=== PATIENT | female | born 1960 | race African-American/Black ===

== ENCOUNTER → 2016-07-08 | Outpatient (CLI) | payer MEDICARE, OTHER ==
[2015-06-28 10:58] VITALS: BP 123/83
[~2016-07-08] MED LIST: ALBU2.5V14 NEB; AMLO10TA2 PO; AMLO5TAB2 PO; ASPI81TA50 PO; AZIT250T6 PO; BUDE10.2 IH; BUDE10.22 IH; CLON0.5T PO; CYCL10TA2 PO; DOXY100T PO; ESCI10TA PO; ESCI20TA10 PO; GADOBUTROL 7.5 MMOL/7.5 ML VIAL INT ART ONE; GUAI120L35 PO; HYDR-2762 PO; HYDR10TA2 PO; HYDR200T5 PO; HYDR50TA PO; LEVO5TAB2 PO; LIDOCAINE 1% Multi-Dose 20 ML VIAL. ID ONE; LISI-334 PO; NYST1000 PO; OLOP2.5D OP; OXYC-323 PO; PRED-220 PO; PROM118S2 PO; PROP60CA8 PO; TIOT18CA IH; TOPI25TA32 PO; TRAZ50TA15 PO; XOPENEX HFA15 GM IH; ZOLP10TA4 PO
--- NOTE | 2016-07-08 15:23 | KCIC ---
PROCEDURE MR arthrogram of the left shoulder HISTORY Left rotator cuff tear. Surgery December 2015. Pain for 1 or 2 months. TECHNIQUE Intra-articular contrast injected prior to the scan, and reported separately. Patient was unable to tolerate ABER positioning. COMPARISON November 28, 2015 FINDINGS Moderate motion degradation. There is a deep well-defined undersurface defect of the supraspinatus tendon, measures 18 minutes mm wide by 10 mm AP. At the lateral aspect of the defect this is about 90 percent deep. On coronal images there does appear to be a very thin layer of intact overlying bursal tissue, but on the sagittal images there is suggestion of some through and through violation. Contrast does spill into the subdeltoid bursa. Subscapularis tendon is intact. Moderate muscle volume loss with mild fatty infiltration, of the rotator cuff, may be slightly worse than on the prior study Degenerative type changes at the superior labrum are again identified without new clear-cut tear. There is some irregularity of the inferior labrum seen on the coronal slices compatible with degeneration and possible tear. There is biceps tendinosis. Mild glenohumeral joint chondromalacia. Suture anchors at the greater tuberosity. No significant bone destruction or acute fracture. No acute soft tissue injury IMPRESSION 1. There is a deep undersurface defect or tear of the supraspinatus tendon, at least 90 percent across. A couple of sagittal images suggests that there is some through and through involvement, but this is not confirmed on the other sequences. 2. Mild rotator cuff muscle atrophy, may be slightly progressive since the prior study. 3. Mild irregularity at the inferior labrum compatible with degeneration or tearing. Mild superior labral degeneration again identified. Electronically signed by: Javier Aguillon MD (Jul 08, 2016 15:21:45)
--- NOTE | 2016-07-08 15:25 | KCIC ---
PROCEDURE Therapeutic left shoulder injection using fluoroscopic guidance. HISTORY Pain. TECHNIQUE The procedure was explained to the patient as were potential risks, including among others infection, bleeding or allergic reaction. All questions were answered. Informed written consent was obtained. The anterior shoulder was prepped and draped in the usual sterile manner. The patient reports a history of iodine contrast allergy, therefore iodine contrast was not used. Following administration of local anesthetic, a 22-gauge needle was advanced into the shoulder joint without difficulty. Following negative aspiration, a mixture of 2 cc (80 mg) Depo-Medrol, 4 cc 0.5% Marcaine and 4 cc 1% lidocaine were injected without difficulty. The needle was removed. There was good hemostasis at the injection site. The patient left in stable condition without immediate complication. The patient was given postprocedural instructions, instructed to contact us or the emergency room if there are any complications. A single spot image is obtained. FLUOROSCOPY TIME: 22 seconds Electronically signed by: Javier Aguillon MD (Jul 08, 2016 15:23:29)
== END | disposition home or self-care (01) ==
LOC: KCIC 12:51
PROVIDERS: ATTEND Orthopaedic Surgery Sports Medicine
DX: M75.102 Unspecified rotator cuff tear or rupture of left shoulder, not specified as traumatic (principal)
CPT/HCPCS: 73040; 73222; A9585

== ENCOUNTER → 2016-10-29 | Outpatient (CLI) | payer MEDICARE, OTHER ==
[2015-06-28 10:58] VITALS: BP 123/83
[~2016-10-29] MED LIST changes: -ESCI10TA PO; -ESCI20TA10 PO; +ESCITALOPRAM OX10 MG PO; -GADOBUTROL 7.5 MMOL/7.5 ML VIAL INT ART ONE; +LEXAPRO20 MG PO; -LIDOCAINE 1% Multi-Dose 20 ML VIAL. ID ONE; -NYST1000 PO; +NYST100054 PO; -TOPI25TA32 PO; +TOPI25TA52 PO
--- NOTE | 2016-11-07 13:15 | PDOC4 ---
PROCEDURE Procedure POLYSOMNOGRAPHY REPORT Kaylee is 56 years old who weighs 220 pounds with a BMI of 35. Patient's [place] score was 6. Patient underwent sleep study at [facility]. This was a split night study. During the night's study patient spent 449 minutes in bed and slept for 373 minutes with a sleep efficiency of 83%. Sleep latency was 34 minutes. REM latency was 167 minutes. Overall sleep architecture showed normal stage I sleep , increased stage II sleep, normal slow-wave sleep and normal REM sleep. During the initial diagnostic portion of the study patient slept for 192 minutes. During this time patient had 21 obstructive apneas and 2 mixed apneas and no central apneas. Patient had 39 hypopneas. Patient's AHI during the diagnostic portion was 19 per hour. Supine AHI was 19 per hour and REM AHI of 80 per hour. EKG monitoring revealed average heart rate of 85 bpm. Normal sinus rhythm. No sustained arrhythmias were observed. Review of nocturnal oximetry study revealed a mean oxygen saturation of 99% with the lowest of 76%. 16% of the time oxygen saturation remained less than 90% . There were PLM seen Patient met the criteria for CPAP initiation. He was started at 5 cm water and titrated up to 15 cm of water. At the final pressure patient slept for 43 minutes. Supine sleep was seen but no REM sleep was observed. Patient's AHI was 0 per hour. Patient used a small size fullface mask. IMPRESSION 1. Moderate sleep apnea hypoxia syndrome with worsening during REM sleep. Total AHI 19 per hour with REM AHI of 80 per hour. 2. Mild nocturnal hypoxia secondary to obstructive sleep apnea, but resolved with CPAP. 3. No clinically significant PLM RECOMMENDATIONS 1. CPAP at 15 cm water completely eliminated patient's sleep apnea and should be used on a nightly basis. 2. Follow-up in 4-6 weeks to assess compliance with CPAP and to document clinical improvement. 3. Weight loss is strongly advised. 4. Avoid central nervous system depressants 5. Cautioned regarding driving until symptoms of sleep apnea have resolved with the use of CPAP. ADDIE ENCARNACION MD Nov 07, 2016 13:15
== END | disposition home or self-care (01) ==
LOC: RT 18:13
PROVIDERS: ATTEND Internal Medicine Critical Care Medicine
DX: G47.33 Obstructive sleep apnea (adult) (pediatric) (principal); R09.02 Hypoxemia
CPT/HCPCS: 95810

== ENCOUNTER → 2017-03-27 | Outpatient (CLI) | payer MEDICARE, OTHER ==
[2015-06-28 10:58] VITALS: BP 123/83
[~2017-03-27] MED LIST changes: +BARIUM SULFATE 2.1% 450 ML SUSP PO ONE
--- NOTE | 2017-03-27 14:45 | KCIC ---
PQRS Compliance Statement: One or more of the following individualized dose reduction techniques were utilized for this examination: 1. Automated exposure control 2. Adjustment of the mA and/or kV according to patient size 3. Use of iterative reconstruction technique CT ABDOMEN WO CONTRAST Clinical Indication: Right-sided pain and epigastric pain, diarrhea. Comparison: None. TECHNIQUE: Helical CT imaging of the abdomen is performed without IV contrast. Findings: Lung bases are clear. Coronary artery disease. Cardiac size normal. Liver, gallbladder, spleen, pancreas, adrenal glands, kidneys, and abdominal aorta caliber are normal. Atherosclerotic distal abdominal aorta and common iliac arteries. There is hyperdense material in the stomach that is admixing with fluid. Correlate to recent ingestions. Visualized small bowel is not dilated. There is right of midline ventral and periumbilical hernia mesh. Visualized colon does not demonstrate wall thickening. No abdominal adenopathy or free fluid. No acute bone abnormality. Mild grade 1 anterolisthesis of L4 on L5. IMPRESSION: No acute abdominal abnormality. Electronically signed by: Black Malik MD (03/27/2017 2:42 PM) [id number]
== END | disposition home or self-care (01) ==
LOC: KCIC CT 13:51
DX: R10.13 Epigastric pain (principal); R19.7 Diarrhea, unspecified; I25.10 Atherosclerotic heart disease of native coronary artery without angina pectoris
CPT/HCPCS: 74150

== ENCOUNTER 2017-06-30 19:23 | Inpatient (IN) | payer MEDICARE, OTHER ==
[2017-06-30 19:39] LABS: ADD MAN DIFF? NO
[2017-06-30 19:44] LABS: BASO # 0.1 x10^3/uL (0.0-0.2); BASO % 1 % (0-3); EOS # 0.1 x10^3/uL (0.0-0.7); EOS % 2 % (0-3); HEMATOCRIT 46.2 % (36.0-47.0); HEMOGLOBIN 15.1 g/dL (12.0-15.5); LYMPH # 3.1 x10^3/uL (1.0-4.8); LYMPH % 40 % (24-48); MEAN CORPUSCULAR HEMOGLOBIN 28 pg (25-35); MEAN CORPUSCULAR HGB CONC 33 g/dL (31-37); MEAN CORPUSCULAR VOLUME 86 fL (79-100); MONO # 0.3 x10^3/uL (0.0-1.1); MONO % 5 % (0-9); NEUT # 4.1 x10^3uL (1.8-7.7); NEUT % 53 % (31-73); PLATELET COUNT 200 x10^3/uL (140-400); RED CELL DISTRIBUTION WIDTH 14.7 % (11.5-14.5); WHITE BLOOD COUNT 7.6 x10^3/uL (4.0-11.0)
[2017-06-30 19:51] LABS: ANION GAP 10 (6-14); BLOOD UREA NITROGEN 9 mg/dL (7-20); BUN/CREATININE RATIO 10 (6-20); CALCIUM 9.1 mg/dL (8.5-10.1); CARBON DIOXIDE 27 mmol/L (21-32); CHLORIDE 107 mmol/L (98-107); CREATININE 0.9 mg/dL (0.6-1.0); GFR 77.8; GLUCOSE 132 mg/dL (70-99); POTASSIUM 3.9 mmol/L (3.5-5.1); SODIUM 144 mmol/L (136-145)
[2017-06-30 19:57] LABS: ALBUMIN 3.5 g/dL (3.4-5.0); ALBUMIN/GLOBULIN RATIO 0.8 (1.0-1.7); ALK PHOS 142 U/L (46-116); ALT (SGPT) 51 U/L (14-59); AST (SGOT) 59 U/L (15-37); TOTAL BILIRUBIN 0.4 mg/dL (0.2-1.0)
[2017-06-30 20:02] LABS: TROPONINI < 0.017 ng/mL (0.000-0.055)
[2017-06-30] MEDS ORDERED: NITROGLYCERIN SUBLINGUAL 0.4 MG BOTTLE OF 25. SL ×2 (20:19→22:45)
[2017-06-30] MEDS: NITROGLYCERIN SUBLINGUAL 0.4 MG BOTTLE OF 25. SL ×2 (20:22→20:30)
[2017-06-30 20:59] LABS: D-DIMER 0.52 ug/mlFEU (0.00-0.50)
[2017-06-30] MEDS: ACETAMINOPHEN 500 MG TABLET PO (21:03)
[2017-06-30] MEDS ORDERED: IOHEXOL 300 MG/ML 100ML VIAL. (21:32)
[2017-06-30] MEDS ORDERED: CONTRAST GIVEN MC (21:45)
[2017-06-30] MEDS: diphenhydrAMINE 50 MG/ML VIAL IVP (21:56)
[2017-06-30] MEDS: methylPREDNISolone SOD SUCC PF 125 MG/2 ML VIAL. IV (21:56)
[2017-06-30] MEDS: IOHEXOL 300 MG/ML 100ML VIAL. IV (22:00)
[2017-06-30] MEDS: ASPIRIN CHEWABLE 81 MG TABLET. PO (23:05)
[2017-06-30] MEDS: NITROGLYCERIN OINT 1 GM PACKET. TP (23:05)
[2017-06-30] MEDS ORDERED: ONDANSETRON PF 4 MG/2 ML VIAL. IV (23:15)
[2017-06-30] MEDS ORDERED: ACETAMINOPHEN 325 MG TABLET. PO (23:15)
[2017-07-01] MEDS: fentaNYL PF VIAL 100 MCG/2 ML VIAL IV ×3 (00:53→08:41)
[2017-07-01 02:59] LABS: TROPONINI < 0.017 ng/mL (0.000-0.055)
[2017-07-01 05:49] LABS: TROPONINI < 0.017 ng/mL (0.000-0.055)
[2017-07-01] MEDS: IPRATRPIUM/ALBUTEROL 0.5/2.5MG 3 ML NEBU. NEB ×5 (08:36→20:00)
[2017-07-01 09:48] LABS: CHOLESTEROL 179 mg/dL (0-200); CHOLESTEROL/HDL RATIO 3.1; HDLC 57 mg/dL (40-60); LDLC 107 mg/dL (0-100); NON-HDL CHOLESTEROL 122 mg/dL (0-129); TRIGLYCERIDES 75 mg/dL (0-150); VLDLC 15 mg/dL (0-40)
[2017-07-01] MEDS: amLODIPine BESYLATE 10 MG TABLET PO (11:33)
[2017-07-01] MEDS: ASPIRIN ENTERIC COATED 81 MG TABLET.DR. PO (11:33)
[2017-07-01] MEDS: HYDROcodone/APAP 7.5/325MG 1 TAB TABLET PO ×3 (11:38→20:59)
[2017-07-01] MEDS: REGADENOSON 0.4 MG/5 ML DISP.SYRIN. IV (14:41)
[2017-07-01] MEDS: LISINOPRIL 20 MG TABLET PO (20:58)
[2017-07-01] MEDS: ENOXAPARIN 40 MG/0.4 ML SYRINGE. SQ (20:58)
[2017-07-01] MEDS: TOLNAFTATE 1% TOPICAL SPRAY POWDER 133GM CAN. TP (20:59)
[2017-07-01] MEDS: ZOLPIDEM 5 MG TABLET. PO (22:42)
[2017-07-02] MEDS: HYDROcodone/APAP 7.5/325MG 1 TAB TABLET PO ×5 (01:01→23:39)
[2017-07-02] MEDS: IPRATRPIUM/ALBUTEROL 0.5/2.5MG 3 ML NEBU. NEB (08:32)
[2017-07-02] MEDS: TOLNAFTATE 1% TOPICAL SPRAY POWDER 133GM CAN. TP ×2 (09:00→20:40)
[2017-07-02] MEDS: amLODIPine BESYLATE 10 MG TABLET PO (09:11)
[2017-07-02] MEDS: ASPIRIN ENTERIC COATED 81 MG TABLET.DR. PO (09:11)
[2017-07-02] MEDS: LISINOPRIL 20 MG TABLET PO (09:12)
[2017-07-02] MEDS ORDERED: POLYETHYLENE GLYCOL 3350 17 GM PACKET. PO (10:00)
[2017-07-02] MEDS: PANTOPRAZOLE 40 MG TABLET.DR. PO (13:55)
[2017-07-02] MEDS: LIDO:MAALOX:DONNATAL 1:1:1 15 ML SINGLE DOSE SWSW (13:55)
[2017-07-02] MEDS: ENOXAPARIN 40 MG/0.4 ML SYRINGE. SQ (20:22)
[2017-07-02] MEDS: ZOLPIDEM 5 MG TABLET. PO (23:38)
[2017-07-02 23:57] LABS: BILIRUBIN,URINE NEGATIVE (NEG); CLARITY,URINE CLEAR; COLOR,URINE YELLOW; GLUCOSE,URINE NEGATIVE (NEG); NITRITE,URINE NEGATIVE (NEG); PROTEIN,URINE NEGATIVE (NEG-TRACE)
[2017-07-03 00:15] LABS: BACTERIA,URINE MODERATE /HPF (0-FEW); RBC,URINE 0 /HPF (0-2); SQUAMOUS EPITHELIAL CELL,UR FEW /LPF; WBC,URINE OCC /HPF (0-4)
[2017-07-03] MEDS: HYDROcodone/APAP 7.5/325MG 1 TAB TABLET PO ×4 (03:31→23:06)
[2017-07-03] MEDS: PANTOPRAZOLE 40 MG TABLET.DR. PO (06:15)
[2017-07-03] MEDS: amLODIPine BESYLATE 10 MG TABLET PO (08:44)
[2017-07-03] MEDS: ASPIRIN ENTERIC COATED 81 MG TABLET.DR. PO (08:44)
[2017-07-03] MEDS: TOLNAFTATE 1% TOPICAL SPRAY POWDER 133GM CAN. TP ×2 (08:45→21:46)
[2017-07-03] MEDS: LIDO:MAALOX:DONNATAL 1:1:1 15 ML SINGLE DOSE SWSW (12:00)
[2017-07-03] MEDS: oxyCODONE/APAP 5/325 1 TAB TABLET PO ×2 (12:00→19:32)
[2017-07-03] MEDS: IV NORMAL SALINE 1000ML BAG 1,000 ML IV ×2 (12:01→21:46)
[2017-07-03] MEDS: POLYETHYLENE GLYCOL 3350 17 GM PACKET. PO ×2 (12:13→21:45)
[2017-07-03] MEDS: predniSONE 10 MG TABLET PO (17:39)
[2017-07-03] MEDS: ENOXAPARIN 40 MG/0.4 ML SYRINGE. SQ (20:27)
[2017-07-03] MEDS: LISINOPRIL 20 MG TABLET PO (20:28)
[2017-07-03 22:19] LABS: HCV ANTIBODY >11.0 s/co ratio (0.0-0.9); HEP A IGM ABDY Negative (Negative); HEP B SURFACE AG Negative (Negative)
[2017-07-03] MEDS: predniSONE 20 MG TABLET PO (23:05)
[2017-07-03] MEDS: ZOLPIDEM 5 MG TABLET. PO (23:06)
[2017-07-04] MEDS: oxyCODONE/APAP 5/325 1 TAB TABLET PO (03:58)
[2017-07-04] MEDS: predniSONE 20 MG TABLET PO (06:24)
[2017-07-04] MEDS: diphenhydrAMINE HCL 25 MG CAPSULE PO (07:53)
[2017-07-04] MEDS: IOHEXOL 300 MG/ML 100ML VIAL. IV (08:39)
[2017-07-04] MEDS: TOLNAFTATE 1% TOPICAL SPRAY POWDER 133GM CAN. TP (09:00)
[2017-07-04] MEDS: IV NORMAL SALINE 1000ML BAG 1,000 ML IV (09:02)
[2017-07-04] MEDS: PANTOPRAZOLE 40 MG TABLET.DR. PO (09:02)
[2017-07-04] MEDS: BISACODYL 5 MG TABLET.DR. PO (09:02)
[2017-07-04] MEDS: ASPIRIN ENTERIC COATED 81 MG TABLET.DR. PO (09:02)
[2017-07-04] MEDS: HYDROcodone/APAP 7.5/325MG 1 TAB TABLET PO (09:03)
[2017-07-04] MEDS: amLODIPine BESYLATE 10 MG TABLET PO (09:03)
[2017-07-04] MEDS: POLYETHYLENE GLYCOL 3350 17 GM PACKET. PO (09:04)
== END 2017-07-04 16:44 | disposition home or self-care (01) | DRG 392 ==
LOC: ER 19:23 → 2 SOUTH 22:43
DX: K21.9 Gastro-esophageal reflux disease without esophagitis (principal); J43.9 Emphysema, unspecified; K76.0 Fatty (change of) liver, not elsewhere classified; Z99.81 Dependence on supplemental oxygen; R07.89 Other chest pain; E11.9 Type 2 diabetes mellitus without complications; K59.00 Constipation, unspecified; E78.5 Hyperlipidemia, unspecified; F17.210 Nicotine dependence, cigarettes, uncomplicated; F32.9 Major depressive disorder, single episode, unspecified; F41.9 Anxiety disorder, unspecified; G47.00 Insomnia, unspecified; G43.909 Migraine, unspecified, not intractable, without status migrainosus; G47.33 Obstructive sleep apnea (adult) (pediatric); I10 Essential (primary) hypertension; M19.90 Unspecified osteoarthritis, unspecified site; Z96.651 Presence of right artificial knee joint; N28.89 Other specified disorders of kidney and ureter; Z80.0 Family history of malignant neoplasm of digestive organs; Z85.038 Personal history of other malignant neoplasm of large intestine; Z86.010 Personal history of colon polyps; Z90.710 Acquired absence of both cervix and uterus; Z91.81 History of falling; Z98.42 Cataract extraction status, left eye; Z98.41 Cataract extraction status, right eye; Z88.8 Allergy status to other drugs, medicaments and biological substances
CPT/HCPCS: 36415; 71045; 71275; 74178; 76700; 78452; 80053; 80061; 80074; 81001; 84484; 85025; 85379; 87086; 87186; 93005; 93017; 94640; 96374; 96375; 96376; 99285; 99285-25; A9500; J1200; J1650; J2785; J2930; J3010; J7030; J7512; J7620; Q0163; Q9967

== ENCOUNTER → 2017-07-21 | Day surgery (SDC) | payer MEDICARE, OTHER ==
[~2017-07-21] MED LIST changes: -ALBU2.5V14 NEB; -AMLO10TA2 PO; -AMLO5TAB2 PO; -ASPI81TA50 PO; -AZIT250T6 PO; -BARIUM SULFATE 2.1% 450 ML SUSP PO ONE; -BUDE10.2 IH; -BUDE10.22 IH; -CLON0.5T PO; -CYCL10TA2 PO; -DOXY100T PO; -ESCITALOPRAM OX10 MG PO; -GUAI120L35 PO; -HYDR-2762 PO; -HYDR10TA2 PO; -HYDR200T5 PO; -HYDR50TA PO; +IV RINGERS,LACTATED 1000ML 1,000 ML IV; -LEVO5TAB2 PO; -LEXAPRO20 MG PO; -LISI-334 PO; -NYST100054 PO; -OLOP2.5D OP; -OXYC-323 PO; -PRED-220 PO; -PROM118S2 PO; -PROP60CA8 PO; +PROPOFOL 40 ML IV; -TIOT18CA IH; -TOPI25TA52 PO; -TRAZ50TA15 PO; -XOPENEX HFA15 GM IH; -ZOLP10TA4 PO
== END ==
LOC: SURG 11:21
DX: Z09 Encounter for follow-up examination after completed treatment for conditions other than malignant neoplasm (principal); Z86.010 Personal history of colon polyps; Z80.0 Family history of malignant neoplasm of digestive organs; K63.5 Polyp of colon; I10 Essential (primary) hypertension; E11.9 Type 2 diabetes mellitus without complications; E78.5 Hyperlipidemia, unspecified; J44.9 Chronic obstructive pulmonary disease, unspecified; G47.33 Obstructive sleep apnea (adult) (pediatric); F41.9 Anxiety disorder, unspecified; F32.9 Major depressive disorder, single episode, unspecified; M19.90 Unspecified osteoarthritis, unspecified site; Z98.49 Cataract extraction status, unspecified eye; Z96.659 Presence of unspecified artificial knee joint; Z90.710 Acquired absence of both cervix and uterus; Z98.890 Other specified postprocedural states; Z90.49 Acquired absence of other specified parts of digestive tract; K21.9 Gastro-esophageal reflux disease without esophagitis; Z98.42 Cataract extraction status, left eye; Z98.41 Cataract extraction status, right eye; Z80.1 Family history of malignant neoplasm of trachea, bronchus and lung; Z82.49 Family history of ischemic heart disease and other diseases of the circulatory system
CPT/HCPCS: 45380; 88305; J2704

== ENCOUNTER 2018-04-19 18:17 | Emergency (ER) | payer MEDICARE, OTHER ==
[~2018-04-19] VITALS: Ht 165.1 cm; Wt 103.0 kg
[~2018-04-19 18:17] MED LIST changes: +ALBU2.5V14 NEB; +AMLO10TA6 PO; +AMLO5TAB7 PO; +ASPI81TA50 PO; +AZIT250T6 PO; +BUDE10.2 IH; +BUDE10.22 IH; +CLON0.5T PO; +CYCL10TA2 PO; +DOXY100T PO; +ESCITALOPRAM OX10 MG PO; +FLUT1DIS3 IH; +GUAI120L35 PO; +HYDR-2765 PO; +HYDR10TA2 PO; +HYDR200T5 PO; +HYDR50TA PO; -IV RINGERS,LACTATED 1000ML 1,000 ML IV; +LEVO5TAB2 PO; +LEVO750T31 PO; +LEXAPRO20 MG PO; +LISI-334 PO; +METH4TAB2 PO; +NYST100054 PO; +OLOP2.5D OP; +OXYC1TAB15 PO; +PRED-220 PO; +PROM118S5 PO; +PROP60CA8 PO; -PROPOFOL 40 ML IV; +TIOT18CA IH; +TOPI25TA52 PO; +TRAZ-85 PO; +XOPENEX HFA15 GM IH; +ZOLP10TA4 PO
[2018-04-19 19:24] VITALS: BP 144/111
--- NOTE | 2018-04-19 21:00 | PHYS DOC ---
Past Medical History Past Medical History: Arthritis, COPD, Depression, Hypertension, Hepatitis, Migraines Additional Past Medical Histor: hep C, sleep apnea, imsomnia, fatty liver Past Surgical History: , Hysterectomy, Knee Replacement Additional Past Surgical Histo: bilat CATARACTS, right rotator cuff; hernia; "floating" kidney Alcohol Use: None Drug Use: None Adult General Chief Complaint Chief Complaint: KNEE INJURY HPI HPI Patient is a 57 year old female with history of COPD, on oxygen, hypertension, arthritis, who presents today complaining of 10 out of 10 right knee pain that began yesterday when she fell. Patient denies any loss of consciousness. She describes the pain as sharp. She states she feels something is wrong in her knee. I offered patient right knee x-rays, she she states she has an appointment with her doctor tomorrow and would like a knee immobilizer, Kehinde bandage and left foot orthopedic shoe. She states she is not allowed to take any pain medicine from any emergency room or any other provider apart from her pain clinic doctor because she has a contract with him. She states the pain clinic doctor informed her if she is found taking any pain medicine from anyone else she will be fired from the pain clinic. Patient was provided with orthopedic shoe, immobilizer and Kehinde bandage and discharged. Review of Systems Review of Systems Constitutional: Denies fever or chills [] Musculoskeletal: Reports right knee pain Integument: Denies rash or skin lesions [] Neurologic: Denies headache, focal weakness or sensory changes [] All other systems were reviewed and found to be within normal limits, except as documented in this note. Allergies Allergies Allergies Coded Allergies Type Severity Reaction Last Updated Verified No Known Drug Allergies 07/21/17 No Physical Exam Physical Exam Constitutional: Well developed, well nourished, no acute distress, non-toxic appearance. [] Skin: Warm, dry, no erythema, no rash. [] Back: No tenderness, no CVA tenderness. [] Extremities: Right anterior knee with an old healed surgical incision. No obvious deformity. Slight tenderness on palpation of the right anterior knee. Full passive range of motion to the right knee. +2 right pedal pulse. Cap refill less than 2 seconds the right toes. Sensation intact to the right lower extremity. Neurologic: Alert and oriented X 3, normal motor function, normal sensory function, no focal deficits noted. [] Psychologic: Affect normal, judgement normal, mood normal. [] Current Patient Data Vital Signs Vital Signs Date Time Temp Pulse Resp B/P (MAP) Pulse Ox O2 Delivery O2 Flow Rate FiO2 04/19/18 19:24 97.5 94 16 144/111 (122) 99 Room Air 3.0 97.5 EKG EKG [] Radiology/Procedures Radiology/Procedures [] Course & Med Decision Making Course & Med Decision Making Pertinent Labs and Imaging studies reviewed. (See chart for details) See history of present illness Dragon Disclaimer Dragon Disclaimer This electronic medical record was generated, in whole or in part, using a voice recognition dictation system. Departure Departure Impression: Primary Impression: Fall from standing Additional Impression: Knee pain, right Disposition: HOME, SELF-CARE Condition: STABLE Referrals: JEFFERSON LOCK Jr, MD (PCP) follow up with your doctor tomorrow Patient Instructions: Fall Prevention and Home Safety, Knee Pain, [id number] Additional Instructions: You were evaluated in the emergency room for right knee pain, we offered you x- rays, you declined. Follow-up with your doctor tomorrow. Problem Qualifiers Primary Impression: Fall from standing Encounter type: initial encounter Qualified Codes: W19.XXXA - Unspecified fall, initial encounter Additional Impression: Knee pain, right Chronicity: acute Qualified Codes: M25.561 - Pain in right knee DANIA MCMAHON [employer] Apr 19, 2018 20:59
== END 2018-04-19 21:06 | disposition home or self-care (01) ==
LOC: ER 18:17
DX: M25.561 Pain in right knee (principal); G89.11 Acute pain due to trauma; J44.9 Chronic obstructive pulmonary disease, unspecified; I10 Essential (primary) hypertension; M19.90 Unspecified osteoarthritis, unspecified site; G43.909 Migraine, unspecified, not intractable, without status migrainosus; Z96.659 Presence of unspecified artificial knee joint; W18.30XA Fall on same level, unspecified, initial encounter; Y93.89 Activity, other specified; Y92.89 Other specified places as the place of occurrence of the external cause; Y99.8 Other external cause status
CPT/HCPCS: 29505; 99283

== ENCOUNTER → 2019-07-18 | Day surgery (SDC) | payer MEDICARE, MEDICAID ==
[~2019-07-18] MED LIST changes: -AMLO10TA6 PO; +AMLO10TA8 PO; +AMLO5TAB10 PO; -AMLO5TAB7 PO; +BRIM5DRO2 OP; +IV RINGERS,LACTATED 1000ML 1,000 ML IV SCH; +LATA2.5D3 OP; +LIDOCAINE 2% PF 5 ML VIAL. ONE; +MELO15TA23 PO; +PROP60CA36 PO; -PROP60CA8 PO; +PROPOFOL 40 ML IV ONE; +TRAZ-118 PO; +TRAZ-123 PO; -TRAZ-85 PO; +UMEC62.5 IH
--- NOTE | 2019-07-18 13:50 | PDOC4 ---
PROCEDURE Procedure EGD/barnard dilation. Ind: dysphagia Meds: per anesthesia. Findings: E--healing erosive esophagitis at 38-39cm. Grade C at baseline estimated. G--Small HH D--scattered erosions, bulb. Second portion normal. Dilated with 52F Barnard w/o resistance. [place]. well. IMP: GERD HH Duodenal erosions REC: Continue PPI. Resume other meds and diet. F/u in 2 weeks to gauge response to dilation. ANDRESSA SARAVIA MD Jul 18, 2019 13:49
[2019-07-18 14:17] VITALS: BP 180/92
== END ==
LOC: ENDOS 12:12
PROVIDERS: ATTEND Internal Medicine Gastroenterology
DX: K21.0 Gastro-esophageal reflux disease with esophagitis (principal); K44.9 Diaphragmatic hernia without obstruction or gangrene; K26.9 Duodenal ulcer, unspecified as acute or chronic, without hemorrhage or perforation; J44.9 Chronic obstructive pulmonary disease, unspecified; K76.0 Fatty (change of) liver, not elsewhere classified; E11.9 Type 2 diabetes mellitus without complications; F32.9 Major depressive disorder, single episode, unspecified; F41.9 Anxiety disorder, unspecified; G43.909 Migraine, unspecified, not intractable, without status migrainosus; E66.9 Obesity, unspecified; Z68.39 Body mass index [BMI] 39.0-39.9, adult; Z87.891 Personal history of nicotine dependence; Z86.19 Personal history of other infectious and parasitic diseases; Z96.651 Presence of right artificial knee joint; Z98.42 Cataract extraction status, left eye; Z98.41 Cataract extraction status, right eye; Z96.1 Presence of intraocular lens; Z90.710 Acquired absence of both cervix and uterus; Z79.84 Long term (current) use of oral hypoglycemic drugs
CPT/HCPCS: 43235; 43450; J2001; J2704

== ENCOUNTER 2020-01-29 17:47 | Emergency (ER) | payer MEDICARE, MEDICAID ==
[~2020-01-29] VITALS: Ht 165.1 cm; Wt 112.2 kg
[~2020-01-29 17:47] MED LIST changes: +FLUC150T PO; -IV RINGERS,LACTATED 1000ML 1,000 ML IV SCH; -LIDOCAINE 2% PF 5 ML VIAL. ONE; +MONT10TA49 PO; -OLOP2.5D OP; +OLOP2.5D12 OP; +PRED20TA PO; -PROPOFOL 40 ML IV ONE; +SUMA100T3 PO
--- NOTE | 2020-01-29 19:24 | PHYS DOC ---
Past Medical History Past Medical History: Arthritis, COPD, Depression, Hypertension, Hepatitis, Migraines, Other Additional Past Medical Histor: hep C, sleep apnea, imsomnia, fatty liver Past Surgical History: , Hysterectomy, Knee Replacement Additional Past Surgical Histo: bilat CATARACTS, right rotator cuff; hernia; "floating" kidney Smoking Status: Former Smoker Alcohol Use: Occasionally Drug Use: None General Adult EDM: Chief Complaint: MECHANICAL FALL HPI: HPI: Patient is a 59-year-old female who presents to the emergency room after having a fall. Patient states that she was stepping off of the porch and stepped on a rock which caused her to fall. She states that she had immediate onset of pain in her left ankle and lower leg. She needed help getting off the floor. She tried to ice it prior to arrival without any improvement in her symptoms. She states she is unable to put any weight on it. She denies any numbness. She denies any other injuries. She does not have any loss of consciousness. Review of Systems: Review of Systems: General: Denies fever, chills, sweats, fatigue Eyes: Denies drainage, blurred vision, eye redness HENT: Denies rhinorrhea, sore throat, earache Respiratory: Denies cough, shortness of breath, wheezing Cardiac: Denies edema, palpitations, chest pain GI: Denies abdominal pain, Nausea, vomiting MSK: Denies back pain, neck pain Skin: Denies rash, jaundice Neuro: Denies headache, dizziness Psychiatric: Denies SI/HI Heart Score: Risk Factors: Risk Factors: DM, Current or recent (<one month) smoker, HTN, HLP, family history of CAD, obesity. Risk Scores: Score 0 - 3: 2.5% MACE over next 6 weeks - Discharge Home Score 4 - 6: 20.3% MACE over next 6 weeks - Admit for Clinical Observation Score 7 - 10: 72.7% MACE over next 6 weeks - Early Invasive Strategies Allergies: Allergies: Allergies Coded Allergies Type Severity Reaction Last Updated Verified No Known Drug Allergies 07/18/19 No Physical Exam: PE: General: Awake, alert, NAD. Well Nourished, well hydrated. Cooperative HEENT: [Atraumatic], EOMI, PERRL, airway patent, moist oral mucosa, no nasal septal hematoma, no facial crepitus or deformity Neck: Supple, trachea midline,[no c-spine tenderness] Respiratory: CTA bilaterally, normal effort, no wheezing/crackles, no crepitus CV: RRR, no murmur, cap refill <2, 2+ bilateral radial/DP pulses GI: Soft, nondistended, nontender, no masses MSK: Left ankle swelling and tenderness on exam, pelvis stable and nontender Skin: Warm, dry, abrasions to bilateral knees without swelling or tenderness Neuro: A&O x3, speech NL, sensory and motor grossly intact, no focal deficits Psych: Normal affect, normal mood, not suicidal or homicidal Current Patient Data: Vital Signs: Vital Signs Date Time Temp Pulse Resp B/P (MAP) Pulse Ox O2 Delivery O2 Flow Rate FiO2 01/29/20 18:15 98.2 54 17 194/90 (124) 100 Room Air 98.2 EKG: EKG: [] Radiology/Procedures: Radiology/Procedures: [] Course & Med Decision Making: Course & Med Decision Making Pertinent Labs and Imaging studies reviewed. (See chart for details) Patient is 59-year-old female who presents to the emergency room after falling and hurting her ankle. Patient does have swelling into the ankle which is concerning for acute fracture. She does have intact distal movement and sensation. She was given Percocet and x-rays were ordered. Patient continued to have significant pain. She does have a fibular fracture. She is placed in a splint with significant improvement. She will be discharged home with Percocet and follow-up with orthopedic surgery. Patient's test results and vitals while in the ED were fully reviewed and discussed with the patient. Patient is stable and at this time does not need admission to the hospital. We have discussed strict return precautions and the importance of following up with their Primary Care Physician. Patient stated understanding and was given an opportunity to ask any questions. Patient is in agreement with plan. Jaja Disclaimer: Jaja Disclaimer: This electronic medical record was generated, in whole or in part, using a voice recognition dictation system. Departure Departure Impression: Primary Impression: Fall Additional Impression: Fibula fracture Disposition: HOME, SELF-CARE Condition: STABLE Referrals: NATHAN LAUREN MD (PCP) TANMAY MEDEL MD Patient Instructions: Cast or Splint Care, Utle-do-Hwed, Fibular Fracture, Ankle, Adult, Undisplaced, Treated with Immobilization Scripts Oxycodone/Apap 5-325 (PERCOCET 5-325 MG TABLET ) 1 Each Tablet 1 TAB PO PRN Q6HRS PRN for PAIN, #12 TAB 0 Refills Prov: MAAME GABRIEL MD 01/29/20 Justicifation of Admission Dx: Justifications for Admission: Justification of Admission Dx: Yes Respiratory Failure: Severe Resp Distress Acute COPD Exacerbation: Acute COPD Exacerbation MAAME GABRIEL MD Jan 29, 2020 19:24
[2020-01-29] MEDS ORDERED: oxyCODONE/APAP 5/325 1 TAB TABLET PO ONE (19:30)
[2020-01-29] MEDS ORDERED: MORPHINE SULFATE 10 MG/ML VIAL. IV ONE ×2 (20:30→22:00)
--- NOTE | 2020-01-29 20:41 | RAD ---
ANKLE LEFT 3V DATE: 01/29/2020 7:01 PM INDICATION: Reason: pain, fall / Spl. Instructions: / History: COMPARISON: None. FINDINGS: Bones: Acute minimally displaced fracture of the inferior tip of the lateral malleolus. Joints: The ankle mortise is congruent. No widening of the distal tibiofibular syndesmosis. Miscellaneous: Lateral soft tissue swelling IMPRESSION: Acute lateral malleolus tip fracture. Ankle mortise is congruent. Electronically signed by: Morgan Kwan MD (01/29/2020 8:38 PM) [id number]
[2020-01-29] MEDS ORDERED: OXYC1TAB15 PO (20:54)
[2020-01-29 21:45] VITALS: BP 185/94
== END 2020-01-29 22:02 | disposition home or self-care (01) ==
LOC: ER 17:47
DX: S82.492A Other fracture of shaft of left fibula, initial encounter for closed fracture (principal); R60.0 Localized edema; M19.90 Unspecified osteoarthritis, unspecified site; J44.9 Chronic obstructive pulmonary disease, unspecified; F32.9 Major depressive disorder, single episode, unspecified; I10 Essential (primary) hypertension; G43.909 Migraine, unspecified, not intractable, without status migrainosus; K73.9 Chronic hepatitis, unspecified; Z90.710 Acquired absence of both cervix and uterus; Z98.890 Other specified postprocedural states; Z87.891 Personal history of nicotine dependence; W18.39XA Other fall on same level, initial encounter; Y93.89 Activity, other specified; Y92.89 Other specified places as the place of occurrence of the external cause; Y99.8 Other external cause status
CPT/HCPCS: 29515; 73610; 96374; 99285; J2270

== ENCOUNTER → 2020-02-02 | Outpatient (CLI) | payer MEDICARE, MEDICAID ==
[2020-01-29 21:45] VITALS: BP 185/94
[2020-02-02 13:28] LABS: BASO # 0.1 x10^3/uL (0.0-0.2); BASO % 1 % (0-3); EOS # 0.1 x10^3/uL (0.0-0.7); EOS % 1 % (0-3); HEMATOCRIT 44.8 % (36.0-47.0); HEMOGLOBIN 14.9 g/dL (12.0-15.5); LYMPH # 2.3 x10^3/uL (1.0-4.8); LYMPH % 34 % (24-48); MEAN CORPUSCULAR HEMOGLOBIN 28 pg (25-35); MEAN CORPUSCULAR HGB CONC 33 g/dL (31-37); MEAN CORPUSCULAR VOLUME 84 fL (79-100); MONO # 0.5 x10^3/uL (0.0-1.1); MONO % 8 % (0-9); NEUT # 3.8 x10^3/uL (1.8-7.7); NEUT % 56 % (31-73); PLATELET COUNT 192 x10^3/uL (140-400); RED BLOOD COUNT 5.36 x10^6/uL (3.50-5.40); RED CELL DISTRIBUTION WIDTH 15.1 % (11.5-14.5); WHITE BLOOD COUNT 6.8 x10^3/uL (4.0-11.0)
[2020-02-02 13:47] LABS: PROTHROMBIN TIME PATIENT 12.7 SEC (11.7-14.0)
[2020-02-02 14:01] LABS: ALBUMIN 3.4 g/dL (3.4-5.0); ALBUMIN/GLOBULIN RATIO 0.8 (1.0-1.7); CALCIUM 9.2 mg/dL (8.5-10.1); GFR 68.2; POTASSIUM 3.7 mmol/L (3.5-5.1); TOTAL BILIRUBIN 0.8 mg/dL (0.2-1.0); TOTAL PROTEIN 7.9 g/dL (6.4-8.2)
[2020-02-03 01:09] LABS: AFPT MARKER 7.9 ng/mL (0.0-8.3)
[2020-02-04 17:09] LABS: HCV ULTRA QUANT PCR 8290000 IU/mL (.)
[2020-02-06 15:12] LABS: HCV GENOTYPE 1a (.)
[2020-02-06 20:08] LABS: ANA INTERP Negative (.)
[2020-02-07 11:11] LABS: A1A SERUM 164 mg/dL (101-187)
[2020-02-07 15:13] LABS: MITOCHONDRIAL ABDY <20.0 Units (0.0-20.0); SMOOTH MUSCLE AB 8 Units (0-19)
== END | disposition home or self-care (01) ==
LOC: LAB 12:23
PROVIDERS: ATTEND Internal Medicine
DX: B18.2 Chronic viral hepatitis C (principal); R79.89 Other specified abnormal findings of blood chemistry
CPT/HCPCS: 36415; 80053; 82103; 82104; 82105; 82728; 83516; 83540; 83550; 85025; 85610; 86038; 86704; 86706; 86708; 87340; 87522; 87536; 87902

== ENCOUNTER → 2020-03-13 | Outpatient (CLI) | payer OTHER, MEDICAID ==
[~2020-03-13] MED LIST changes: +AMLO-186 PO; +AMLO-187 PO; -AMLO10TA8 PO; -AMLO5TAB10 PO
--- NOTE | 2020-03-13 13:17 | RAD ---
EXAM: Left lower extremity venous Doppler sonogram. HISTORY: Pain and swelling. TECHNIQUE: Lobo scale and color Doppler sonographic evaluation of the left lower extremity veins with spectral waveform analysis was performed. FINDINGS: There is normal color flow, normal compressibility and there are normal spectral waveforms in the common femoral, superficial femoral, popliteal, posterior tibial and greater saphenous veins. IMPRESSION: No Doppler evidence of lower extremity deep venous thrombosis. Electronically signed by: Asia Rodriguez MD (03/13/2020 1:14 PM) [id number]
== END ==
LOC: US 11:58
PROVIDERS: ATTEND Orthopaedic Surgery
DX: R22.42 Localized swelling, mass and lump, left lower limb (principal)
CPT/HCPCS: 93971

== ENCOUNTER → 2020-05-03 | Outpatient (CLI) | payer OTHER, MEDICAID ==
--- NOTE | 2020-05-03 11:15 | RAD ---
EXAMINATION: MRI LEFT LOWER EXTREMITY JOINT WITHOUT INDICATIONS: Left knee pain. TECHNIQUE: Multiplanar multisequence MRI of the left knee was obtained without contrast. COMPARISON: None. FINDINGS: MENISCI: . There is a small degenerative horizontal tear of the posterior horn medial meniscus (imag e 20-22 series 7) and blunting of the anterior horn-body junction suspicious for additional degenerat tanner tearing (image 13 series 8). Lateral meniscus is intact. LIGAMENTS: The anterior and posterior cruciate ligaments are intact. The medial collateral ligament and lateral collateral ligament complex are intact. EXTENSOR MECHANISM: The quadriceps and patellar tendons are intact. Fat pads are normal. Retinacula are intact. BONES AND CARTILAGE: There are geographic intermediate signal lesions in the posterior medial and la teral femoral condyles with T2 hyperintense, T1 hypointense rims (double line sign), consistent with osteonecrosis (image 7, series 8). No subchondral collapse. Mild marrow edema in the posterior and peripheral medial femoral condyle deep to the meniscus. There is full-thickness cartilage loss along the lateral trochlea and deep partial-thickness cartilag e loss elsewhere in the patellofemoral compartment. There is widespread full-thickness cartilage loss throughout most of the medial femoral condyle. Deep partial-thickness cartilage loss along the medial tibial plateau. There is superficial and deep partial-thickness cartilage loss at the central weightbearing lateral f emoral condyle and lateral tibial plateau. Small subchondral cysts in the trochlea. Large tricompartm ental osteophytes. No acute fracture. OTHER: There is physiologic fluid in the joint. A Trinidad cyst measures 3.9 x 1.7 x 1.1 cm. There is a small ganglion cyst posterior to the tibial attachment of the PCL. Muscles and tendons are intact. S oft tissues normal. IMPRESSION: 1. Osteonecrosis of the medial femoral condyles. No subchondral collapse. 2. Degenerative tear of the medial meniscus. 3. Tricompartmental cartilage loss, greatest in the medial compartment where there is widespread full -thickness cartilage loss. 4. Large Trinidad cyst. Electronically signed by: Ansley Lopez MD (05/03/2020 11:13 AM) [id number]
== END ==
LOC: MRI 10:32
PROVIDERS: ATTEND Orthopaedic Surgery
DX: S83.242A Other tear of medial meniscus, current injury, left knee, initial encounter (principal); M87.88 Other osteonecrosis, other site; M71.22 Synovial cyst of popliteal space [Baker], left knee; M67.48 Ganglion, other site; M25.762 Osteophyte, left knee; X58.XXXA Exposure to other specified factors, initial encounter; Y93.89 Activity, other specified; Y92.89 Other specified places as the place of occurrence of the external cause; Y99.8 Other external cause status
CPT/HCPCS: 73721

== ENCOUNTER → 2020-06-01 | Outpatient (CLI) | payer OTHER, MEDICAID ==
[~2020-06-01] MED LIST changes: +ASPI325T11 PO; -LISI-334 PO; +LISI20TA18 PO; +OXYC-325 PO; +PRED5DRO20 OS; +PROM25TA10 PO
--- NOTE | 2020-06-01 15:33 | KCIC ---
Study: MRI left ankle without contrast INDICATION: Left ankle pain. Fracture of the left ankle in January 2020 with persistent pain and sw elling. COMPARISON: Left ankle radiographs most recently on 04/24/2020 TECHNIQUE: Multiplanar MR imaging of the left ankle performed without the use of intravenous or intra -articular contrast. FINDINGS: Bones/cartilage: Redemonstration of an incompletely united distal fibular avulsion fracture with frag ment measuring approximately 8 mm transverse by 12 mm AP. Localized adjacent marrow edema. No sequela of a recent fracture identified elsewhere. Faint patchy marrow STIR signal elevation likely in part relates to disuse. Mild subchondral marrow signal changes at a few locations related to arthrosis kellen t is collectively somewhat mild. Chondral loss at the medial aspect of ankle joint with mild subchond ral marrow edema at the medial talar dome. Os trigonum. Ligaments: The distal syndesmosis is intact. Sprain of the ATFL and CFL and potentially the PTFL as w ell but without ligamentous disruption. Probable mild sprain of the deep deltoid ligament but intact traversing fibers remain well visualized. Intact spring and Lisfranc ligaments. Suspected sprain of t he dorsal calcaneocuboid ligament. Musculotendinous: Mild peroneus longus tendinosis at the level of the lateral malleolus. The peroneus brevis is intact. The peroneal tendons remain normally located without significant tendon sheath flu id. Intact PTT, FDL and FHL. Very mild distal Achilles tendinosis. Unremarkable extensors. Sinus Tarsi: Within normal limits. Tarsal tunnel: Unremarkable. Plantar fascia: No evidence for active plantar fasciitis. Miscellaneous: No large effusion with only a small amount of ankle and subtalar joint fluid. IMPRESSION: 1. As seen on previous radiographs, incompletely united but nondisplaced avulsion fracture off the f ibular tip. Mild surrounding marrow and faint adjacent soft tissue edema. Scattered mild degenerative changes and patchy marrow signal often seen with disuse but without an additional fracture. 2. Sprained but not disrupted ATFL and CFL more so than PTFL. Suspected mild sprain of the deep delt oid ligament and dorsal calcaneocuboid ligament. The distal syndesmosis is intact. 3. Mild peroneus longus tendinosis along the lateral malleolus and minimal tendinosis of the distal Achilles. No high-grade or full-thickness tendon tear. Electronically signed by: MARY VAZQUEZ MD (06/01/2020 3:31 PM) [id number]
== END ==
LOC: KCIC MRI 12:19
PROVIDERS: ATTEND Orthopaedic Surgery
DX: S82.65XK Nondisplaced fracture of lateral malleolus of left fibula, subsequent encounter for closed fracture with nonunion (principal); M19.072 Primary osteoarthritis, left ankle and foot; X58.XXXD Exposure to other specified factors, subsequent encounter
CPT/HCPCS: 73721

== ENCOUNTER → 2020-07-31 | Outpatient (CLI) | payer OTHER, MEDICAID ==
[~2020-07-31] MED LIST changes: -ASPI325T11 PO; -OXYC-325 PO; -PRED5DRO20 OS; -PROM25TA10 PO
== END ==
LOC: LAB 11:45
PROVIDERS: ATTEND Orthopaedic Surgery
DX: Z01.812 Encounter for preprocedural laboratory examination (principal); S93.492A Sprain of other ligament of left ankle, initial encounter; S93.412A Sprain of calcaneofibular ligament of left ankle, initial encounter; M76.72 Peroneal tendinitis, left leg; Z20.822 Contact with and (suspected) exposure to COVID-19; X58.XXXA Exposure to other specified factors, initial encounter; Y93.89 Activity, other specified; Y92.89 Other specified places as the place of occurrence of the external cause; Y99.8 Other external cause status
CPT/HCPCS: U0003

== ENCOUNTER 2020-08-03 06:13 | Day surgery (SDC) | payer OTHER, MEDICAID ==
[~2020-08-03] VITALS: Ht 162.6 cm; Wt 101.2 kg
[2020-08-03] MEDS ORDERED: PRED5DRO20 OS (06:40)
[2020-08-03] MEDS ORDERED: HYDROmorphone 2 MG/ML VIAL IVP PRN (07:00)
[2020-08-03] MEDS ORDERED: IV RINGERS,LACTATED 1000ML 1,000 ML IV SCH (07:00)
[2020-08-03] MEDS ORDERED: fentaNYL PF VIAL 100 MCG/2 ML VIAL IVP PRN (07:00)
[2020-08-03] MEDS ORDERED: MORPHINE SULFATE 2 MG/ML VIAL. IVP PRN (07:00)
[2020-08-03] MEDS ORDERED: PROCHLORPERAZINE 10 MG/2 ML VIAL. IVP PRN (07:00)
[2020-08-03] MEDS ORDERED: PROP60CA36 PO (07:19)
[2020-08-03] MEDS ORDERED: fentaNYL PF VIAL 100 MCG/2 ML VIAL ONE ×3 (07:44→10:46)
[2020-08-03] MEDS ORDERED: PROPOFOL 10 MG/ML (20ML) VIAL. IV ONE (07:44)
[2020-08-03] MEDS ORDERED: ONDANSETRON PF 4 MG/2 ML VIAL. ONE (07:44)
[2020-08-03] MEDS ORDERED: DEXAMETHASONE SOD PHOS 4 MG/ML VIAL ONE (07:44)
[2020-08-03] MEDS ORDERED: LIDOCAINE 2% PF 5 ML VIAL. ONE (07:44)
[2020-08-03] MEDS ORDERED: BUPIVACAINE-EPI 0.25% 30 ML VIAL KIT. ONE (08:03)
[2020-08-03] MEDS ORDERED: MIDAZOLAM HCL/PF 2 MG/2 ML VIAL. ONE (08:11)
--- NOTE | 2020-08-03 08:20 | PDOC1 ---
History and Physical Date of Admission Date of Admission DATE: 08/03/20 TIME: 08:16 Identification/Chief Complaint Chief Complaint left ankle pain Source Source: Chart review, Patient History of Present Illness History of Present Illness 59-year-old with persistent left ankle. She is more than 6 months out from her lateral malleolus fracture on 01/29/20. Injury on 01/29/20 after falling off her back porch. At this point, she notices continued ankle pain that has persisted and not improved much from previous visits. In addition, patient locates radiating pains from her lateral ankle up to her knee. Her persistent pain throughout her left leg has been severe and impacting her ability to participate in desired activities of daily living. MRI shows 1. As seen on previous radiographs, incompletely united but nondisplaced avulsion fracture off the fibular tip. Mild surrounding marrow and faint adjacent soft tissue edema. Scattered mild d egenerative changes and patchy marrow signal often seen with disuse but without an additional fracture. 2. Sprained but not disrupted ATFL and CFL more so than PTFL. Suspected mild sprain of the deep deltoid ligament and dorsal calcaneocuboid ligament. The distal syndesmosis is intact. 3. Mild peroneus longus tendinosis along the lateral malleolus and minimal tendinosis of the distal Achilles. No high-grade or full-thickness tendon tear. Past Medical History Past Medical History HBP. HEPATITIS C. EYE TROUBLE. DERMATOLOGY ISSUES. LIGHT HEADEDNESS/MIGRAINES. COPD Cardiovascular: HTN, Hyperlipidemia Pulmonary: Asthma, COPD, Other Psych: Anxiety, Depression Endocrine: Diabetes Past Surgical History Past Surgical History CATARACTS BILATERAL BILAT SHOULDER RCR RIGHT TKA BILAT KNEE SCOPE HYSTERECTOMY X 2 FLOATING KIDNEY SURGERY Past Surgical History: Appendectomy, Cataract Removal, , Hernia Repair, Total knee replacement, Hysterectomy, Other Family History Family History: Cancer, Coronary Artery Disease, Diabetes, Hypertension Social History Smoke: Quit ALCOHOL: none Drugs: None Current Medications Current Medications Current Medications Cefazolin Sodium/ Dextrose 50 ml @ 100 mls/hr 1X PREOP PRN IV PRIOR TO PROCEDURE; Start 08/03/20 at 06:00; Stop 08/03/20 at 18:00 Fentanyl Citrate (Fentanyl 2ml Vial) 25 mcg PRN Q5MIN PRN IVP MILD PAIN 1-3; Start 08/03/20 at 07:00; Stop 08/04/20 at 06:59 Fentanyl Citrate (Fentanyl 2ml Vial) 50 mcg PRN Q5MIN PRN IVP MODERATE PAIN 4- 6; Start 08/03/20 at 07:00; Stop 08/04/20 at 06:59 Morphine Sulfate (Morphine Sulfate) 1 mg PRN Q10MIN PRN IVP SEVERE PAIN 7-10; Start 08/03/20 at 07:00; Stop 08/04/20 at 06:59 Ringer's Solution 1,000 ml @ 30 mls/hr Q24H IV Last administered on 08/03/20at 07:00; Start 08/03/20 at 07:00; Stop 08/03/20 at 18:59 Hydromorphone HCl (Dilaudid) 0.5 mg PRN Q10MIN PRN IVP SEVERE PAIN 7-10, 2nd CHOICE; Start 08/03/20 at 07:00; Stop 08/04/20 at 06:59 Prochlorperazine Edisylate (Compazine) 5 mg PACU PRN PRN IVP NAUSEA, MRX1; Start 08/03/20 at 07:00; Stop 08/04/20 at 06:59 Propofol (Diprivan) 200 mg STK-MED ONCE IV ; Start 08/03/20 at 07:44; Stop 08/03/20 at 07:44; Status DC Lidocaine HCl (Lidocaine Pf 2% Vial) 5 ml STK-MED ONCE .ROUTE ; Start 08/03/20 at 07:44; Stop 08/03/20 at 07:44; Status DC Dexamethasone Sodium Phosphate (Decadron) 4 mg STK-MED ONCE .ROUTE ; Start 08/03/20 at 07:44; Stop 08/03/20 at 07:44; Status DC Ondansetron HCl (Zofran) 4 mg STK-MED ONCE .ROUTE ; Start 08/03/20 at 07:44; Stop 08/03/20 at 07:44; Status DC Fentanyl Citrate (Fentanyl 2ml Vial) 100 mcg STK-MED ONCE .ROUTE ; Start 08/03/20 at 07:44; Stop 08/03/20 at 07:45; Status DC Bupivacaine HCl/ Epinephrine Bitart (Sensorcain-Epi 0.25% Kit) 30 ml STK-MED ONCE .ROUTE ; Start 08/03/20 at 08:03; Stop 08/03/20 at 08:04; Status DC Midazolam HCl (Versed) 2 mg STK-MED ONCE .ROUTE ; Start 08/03/20 at 08:11; Stop 08/03/20 at 08:12; Status DC Active Scripts Active Percocet 5-325 Mg Tablet (Oxycodone/Acetaminophen) 1 Each Tablet 1 Tab PO PRN Q6HRS PRN Amlodipine Besylate 10 Mg Tablet 10 Mg PO DAILY 30 Days Montelukast Sodium Tablet (Montelukast Sodium) 10 Mg Tablet 10 Mg PO QHS 30 Days Imitrex (Sumatriptan Succinate) 100 Mg Tablet 100 Mg PO PRN Q2HR PRN 30 Days Reported Inderal La (Propranolol Hcl) 60 Mg Cap.sa.24h 40 Mg PO DAILY Prednisolone Acet 1% Eye Drop (Prednisolone Acetate/Pf) 5 Ml Drops.susp 1 Drop OS QID 30 Days Combigan Eye Drops (Brimonidine Tartrate/Timolol) 5 Ml Drops 5 Ml OP HS Latanoprost 2.5 Ml Drops 1 Drop OP HS Incruse Ellipta (Umeclidinium [place]) 62.5 Mcg Blst.w.dev 62.5 Mcg IH HS Meloxicam 15 Mg Tablet 15 Mg PO DAILY Lexapro (Escitalopram Oxalate) 20 Mg Tablet 20 Mg PO DAILY Trazodone Hcl 100 Mg Tablet 100 Mg PO HS Advair 250-50 Diskus (Fluticasone/Salmeterol) 1 Each Disk.w.dev 1 Puff IH BID Albuterol Sulfate Conc Neb Soln (Albuterol Sulfate) 2.5 Mg/0.5 Ml Vial.neb 1 Vial NEB Q6HRS Xopenex Hfa (Levalbuterol Tartrate) 15 Gm Hfa.aer.ad 15 Gm IH Allergies Allergies: Coded Allergies: No Known Drug Allergies (Unverified , 08/01/20) Physical Exam General: Alert, Cooperative HEENT: Atraumatic Lungs: Normal air movement Heart: RRR Abdomen: Soft Extremities: Other (Continued tenderness at the lateral malleolus. Swelling is essentially resolved now. Tenderness along the peroneal tendons consistent with tendinitis. Slight laxity on anterior drawer testing, I believe there is ligament laxity related to the ununited fracture. Sensation is intact and capillary refill is normal. ) Vitals Vitals Vital Signs Date Time Temp Pulse Resp B/P (MAP) Pulse Ox O2 Delivery O2 Flow Rate FiO2 08/03/20 07:06 97 45 16 143/90 96 Room Air 97.0 Images Images PATIENT: ALL GUTHRIE ACCOUNT: [id number] : 1960 LOCATION: [facility] MRI AGE: 59 SEX: F EXAM STATUS: REG CLI ORD. PHYSICIAN: TANMAY MEDEL MD REASON: LEFT ANKLE PAIN PROCEDURE: LOWER EXT JOINT WO LT Study: MRI left ankle without contrast INDICATION: Left ankle pain. Fracture of the left ankle in January 2020 with persistent pain and swelling. COMPARISON: Left ankle radiographs most recently on 04/24/2020 TECHNIQUE: Multiplanar MR imaging of the left ankle performed without the use of intravenous or intra-articular contrast. FINDINGS: Bones/cartilage: Redemonstration of an incompletely united distal fibular avulsion fracture with fragment measuring approximately 8 mm transverse by 12 mm AP. Localized adjacent marrow edema. No sequela of a recent fracture identified elsewhere. Faint patchy marrow STIR signal elevation likely in part relates to disuse. Mild subchondral marrow signal changes at a few locations related to arthrosis that is collectively somewhat mild. Chondral loss at the medial aspect of ankle joint with mild subchondral marrow edema at the medial talar dome. Os trigonum. Ligaments: The distal syndesmosis is intact. Sprain of the ATFL and CFL and potentially the PTFL as well but without ligamentous disruption. Probable mild sprain of the deep deltoid ligament but intact traversing fibers remain well visualized. Intact spring and Lisfranc ligaments. Suspected sprain of the dorsal calcaneocuboid ligament. Musculotendinous: Mild peroneus longus tendinosis at the level of the lateral malleolus. The peroneus brevis is intact. The peroneal tendons remain normally located without significant tendon sheath fluid. Intact PTT, FDL and FHL. Very mild distal Achilles tendinosis. Unremarkable extensors. Sinus Tarsi: Within normal limits. Tarsal tunnel: Unremarkable. Plantar fascia: No evidence for active plantar fasciitis. Miscellaneous: No large effusion with only a small amount of ankle and subtalar joint fluid. IMPRESSION: 1. As seen on previous radiographs, incompletely united but nondisplaced avulsion fracture off the fibular tip. Mild surrounding marrow and faint adjacent soft tissue edema. Scattered mild d egenerative changes and patchy marrow signal often seen with disuse but without an additional fracture. 2. Sprained but not disrupted ATFL and CFL more so than PTFL. Suspected mild sprain of the deep deltoid ligament and dorsal calcaneocuboid ligament. The distal syndesmosis is intact. 3. Mild peroneus longus tendinosis along the lateral malleolus and minimal tendinosis of the distal Achilles. No high-grade or full-thickness tendon tear. Electronically signed by: MARY VAZQUEZ MD (06/01/2020 3:31 PM) [id number] DICTATED and SIGNED BY: MARY VAZQUEZ MD DATE: 06/01/20 1509 VTE Prophylaxis Ordered VTE Prophylaxis Devices: Yes VTE Pharmacological Prophylaxi: Yes Assessment/Plan Assessment/Plan She has a persistent nonunion of the distal fibula, and sprains of the ATFL and CFL. Deltoid ligament is also sprained although not as symptomatic. She also has the peroneus longus tendinitis. I discussed surgical treatment with her, likely repair of the nonunion by excision, and then ligament repairs of the ATFL and CFL, using suture anchors. Peroneal tendon debridement and/or repair as well. CPT 17406 is repair of fibula nonunion with internal fixation CPT 23893 is repair, secondary, disrupted ligament, ankle, collateral (what I would call a modified Brostrom procedure) CPT 16588 is repair, flexor tendon, leg, primary, without graft, each tendon for the peroneal tendon debridement and repair Justifications for Admission Other Justification TANMAY MEDEL MD Aug 03, 2020 08:20
[2020-08-03] MEDS ORDERED: GLYCOPYRROLATE 1 MG/5 ML VIAL. ONE (08:53)
[2020-08-03] MEDS ORDERED: PROCHLORPERAZINE 10 MG/2 ML VIAL. ONE (09:35)
[2020-08-03] MEDS: fentaNYL PF VIAL 100 MCG/2 ML VIAL IVP PRN ×3 (09:59→10:51)
[2020-08-03] MEDS ORDERED: ASPI325T11 PO (10:21)
[2020-08-03] MEDS ORDERED: PROM25TA10 PO (10:23)
[2020-08-03] MEDS ORDERED: OXYC-325 PO (10:24)
[2020-08-03] MEDS ORDERED: oxyCODONE/APAP 5/325 1 TAB TABLET ONE (10:48)
[2020-08-03 11:05] VITALS: BP 134/80
[2020-08-03] MEDS ORDERED: oxyCODONE/APAP 5/325 1 TAB TABLET PO ONE ×2 (11:15)
--- NOTE | 2020-08-13 13:12 | PDOC4 ---
Operative Note Operative Note Date of Procedure: August 03, 2020 Pre-Op Diagnosis: 1. Closed nondisplaced fracture of lateral malleolus of left fibula with nonunion, subsequent encounter - S82.65XK 2. Sprain of talofibular ligament of left ankle - S93.492A 3. Sprain of calcaneofibular ligament of left ankle, initial encounter - S93.412A 4. Peroneal tendinitis of left lower extremity - M76.72 Post-Op Diagnosis: Same Procedure: CPT 45441 is repair of fibula nonunion with internal fixation CPT 91950 is repair, secondary, disrupted ligament, ankle, collateral (modified Brostrom procedure) CPT 85049 is repair, flexor tendon, leg, primary, without graft, each tendon for the peroneal tendon debridement and repair Surgeon: Tanmay Menchaca MD Handstitching Machine Collar Feller: MIKE Lei Anesthesia: General EBL: 50 mL Specimens Obtained: none Complications: none Drains: none Tourniquet: 33 minutes at 300 mmHg Indications for Procedure: This 59-year-old woman had an ankle injury January 29, 2020. Despite nonoperative treatment she continues to have pain, symptomatic fibular nonunion, unstable ankle with ankle sprains, and peroneal tendon split tendon tear of the peroneus longus with pain at that location. She and I discussed risk-benefit alternatives of surgical treatment. I recommended treatment of the nonunion surgically, repair/reconstruction of the lateral ankle ligaments, and repair of the peroneal tendon using suture technique, less likely would need to proceed with a tenodesis. We talked about the potential risks of ongoing pain, infection, neurovascular injury particularly to skin nerves such as the superficial branches of the peroneal or sural nerve with resulting numbness in the foot or lateral ankle, risks of blood clots, risks of continued pain instability or weakness, stiffness, arthritis of the ankle joint, or other potential surgical or anesthetic complications. She has severe continued pain with the nonoperative treatment and does desire to proceed with surgery. All of her questions about surgery were answered and a written consent was obtained. Procedure in Detail: The patient was identified in the preoperative holding area. The correct left lower extremity was marked by me. The patient was taken to the operating room where a general anesthetic was used. Preoperative antibiotics were given intravenously. A timeout procedure was performed. A tourniquet was placed on the upper thigh. The limb was prepared circumferentially with ChloraPrep solution and sterile drapes were applied. A sterile glove was placed over the toes and heel. An Esmarch bandage was used to exsanguinate the limb and the tourniquet was inflated to 300 mmHg. A curvilinear incision was made following the course of the peroneal tendons slightly posterior to the fibula. Sharp dissection was used and Bovie electrocautery was used for hemostasis. The sural nerve was carefully retracted and protected throughout the case. The peroneal sheath and superior peroneal retinaculum were divided, and the peroneal tendons easily identified. The peroneus longus had a longitudinal split tear at the area of inflammation from the nonunion. There was some heterotopic bone in this area, which was removed with a rongeurs, and which will prevent recurrent tearing of t he peroneal tendons, and this small protuberant area of heterotopic ossification seem to be the cause of the split in the peroneal tendon. The nonunion fragment was identified, and ultimately repaired with suture anchors for the internal fixation. I carefully debrided a few of the nonviable fibers of the split tear of the peroneus longus. I then did a longitudinal running repair of the outer portion of the tendon, using #2-0 Ethibond suture. There is no evidence of peroneal tendon dislocation, and the posterior groove on the fibula for the peroneal tendon seems adequate to prevent dislocation without need for deepening osteotomy procedure. I did not debride very much tendon and there is no need for a tenodesis, and the tendon debridement was to help stimulate healing of the repair. Next the calcaneofibular and anterior talofibular ligaments were secondarily repaired. They had been detached from the anterior tibia. I used an oblique fascial and periosteal incision along the distal fibula, distally and anteriorly, and reflected the remaining scar tissue of the anterior talofibular and calcaneofibular ligaments and likely portion of the posterior talofibular ligament. The ligaments themselves are quite oropeza and I did not feel that an internal brace was warranted. Their attachment on the talus seems normal. I then used Arthrex FiberTak all suture suture anchors to repair and reconstruct the lateral ankle ligaments including the ATFL, CFL, and likely portion of the PTFL. Three anchors were placed, at the usual insertions of the ATFL, CFL, and PT FL, on the posterior fibular location, the distal fibular location, and the anterior distal fibular location and incorporating the fibular nonunion for secure repair of the nonunion. A MasonAllen suture pattern was used, with the sutures exiting the nonarticular side of the ligaments, and my early childhood assistant Marky held the ankle in an everted position while the sutures were tied, restoring the normal anatomy of the anterior talofibular, posterior talofibular, and calc aneofibular ligaments. There was satisfactory depth of the peroneal groove and no need for fibular osteotomy deepening procedure. The tourniquet was released. Bovie electrocautery was used carefully for hemostasis. Copious saline irrigation was used. Outer gloves were changed. The superior peroneal retinaculum was repaired with 0 Vicryl [id number] sutures. The remaining periosteum and fascia at the fibular attachment of the anterior talofibular and calcaneofibular ligaments was reapproximated with 0 Vicryl sutures. The peroneal tendon sheath was repaired with 0 Vicryl suture. The deep subcutaneous tissues were reapproximated with 0 Vicryl sutures. My early childhood assistant closed the subcutaneous tissues with #2-0 Vicryl. He then used #3- 0 STRATAFIX Monocryl running suture in the skin at my instruction. Injected 30 mL of 0.25% bupivacaine with epinephrine into the skin edges. Xeroform and a sterile dressing were applied along with a posterior splint with the ankle everted. Needle and sponge counts were correct. There were no apparent complications. TANMAY MENCHACA MD Aug 13, 2020 13:12
== END 2020-08-03 11:50 | disposition home or self-care (01) ==
LOC: SURG 06:13
PROVIDERS: ATTEND Orthopaedic Surgery
DX: S82.65XK Nondisplaced fracture of lateral malleolus of left fibula, subsequent encounter for closed fracture with nonunion (principal); S93.492A Sprain of other ligament of left ankle, initial encounter; S93.412A Sprain of calcaneofibular ligament of left ankle, initial encounter; M76.72 Peroneal tendinitis, left leg; I10 Essential (primary) hypertension; J44.9 Chronic obstructive pulmonary disease, unspecified; K21.9 Gastro-esophageal reflux disease without esophagitis; G47.30 Sleep apnea, unspecified; F41.9 Anxiety disorder, unspecified; F32.9 Major depressive disorder, single episode, unspecified; Z90.710 Acquired absence of both cervix and uterus; Z98.890 Other specified postprocedural states; Z87.891 Personal history of nicotine dependence; Z79.899 Other long term (current) drug therapy; X58.XXXS Exposure to other specified factors, sequela
CPT/HCPCS: 27658; 27698; 27726; 97116; 97162; 97530; A4930; A6253; A6402; A6449; C1713; J0690; J0780; J1100; J2250; J2405; J2704; J3010; J3490; A6455

== ENCOUNTER 2021-05-17 12:32 | Emergency (ER) | payer OTHER, MEDICAID ==
[~2021-05-17] VITALS: Ht 167.6 cm; Wt 104.0 kg
[~2021-05-17 12:32] MED LIST changes: +ASPI325T11 PO; +CYCL10TA19 PO; -CYCL10TA2 PO; +OXYC-325 PO; +PRED5DRO20 OS; +PROM25TA10 PO
[2021-05-17 15:05] VITALS: BP 149/75
--- NOTE | 2021-05-17 15:16 | PHYS DOC ---
Past Medical History Past Medical History: Arthritis, COPD, Depression, Hypertension, Hepatitis, Migraines, Other Additional Past Medical Histor: hep C, sleep apnea, imsomnia, fatty liver Past Surgical History: , Hysterectomy, Knee Replacement Additional Past Surgical Histo: bilat CATARACTS, right rotator cuff; hernia; "floating" kidney Smoking Status: Former Smoker Alcohol Use: Occasionally Drug Use: None General Adult EDM: Chief Complaint: LOWER EXT PAIN HPI: HPI: Patient is a 60 year old female who presents with states 3 days ago she was up in a chair trying to clean the dust off of her fan when she fell. She states the fall did not hurt her but when she went to get up she had a pop in her left knee and the knee has been swollen and painful. She does walk with a walker she has been up and walking on it. She states she been using ice, Biofreeze, elevation but is not helping. Patient did walk with her walker into the ED and down to the cafeteria to get herself some food before coming back up to the ER waiting room and being walked back to fast track without complication. Rates her pain a 10/10. Patient has a history of arthritis, hep C, COPD, depression, hypertension, migraine, hysterectomy, knee replacement, , former smoker, floating kidney, cataracts and hernia. Review of Systems: Review of Systems: Constitutional: Denies fever or chills. [] Eyes: Denies change in visual acuity. [] HENT: Denies nasal congestion or sore throat. [] Respiratory: Denies cough or shortness of breath. [] Cardiovascular: Denies chest pain or + left knee edema. [] GI: Denies abdominal pain, nausea, vomiting, bloody stools or diarrhea. [] : Denies dysuria. [] Musculoskeletal: Denies back pain or + left knee joint pain. + Left outer foot [] Integument: Denies rash. [] Neurologic: Denies headache, focal weakness or sensory changes. [] Endocrine: Denies polyuria or polydipsia. [] Lymphatic: Denies swollen glands. [] Psychiatric: Denies depression or anxiety. [] Heart Score: C/O Chest Pain: No Allergies: Allergies: Allergies Coded Allergies Type Severity Reaction Last Updated Verified No Known Drug Allergies 08/01/20 No Physical Exam: PE: Constitutional: Well developed, well nourished, no acute distress, non-toxic appearance. [] HENT: Normocephalic, atraumatic, bilateral external ears normal, oropharynx moist, no oral exudates, nose normal. [] Eyes: PERRLA, EOMI, conjunctiva normal, no discharge. [] Neck: Normal range of motion, no tenderness, supple, no stridor. [] Cardiovascular:Heart rate regular rhythm, no murmur [] Lungs & Thorax: Bilateral breath sounds clear to auscultation [] Abdomen: Bowel sounds normal, soft, no tenderness, no masses, no pulsatile masses. [] Skin: Warm, dry, no erythema, no rash. [] Back: No tenderness, no CVA tenderness. [] Extremities: Left lateral knee tenderness, no cyanosis, no clubbing, ROM intact, left knee 2+ edema. [] Neurologic: Alert and oriented X 3, normal motor function, normal sensory function, no focal deficits noted. [] Psychologic: Affect normal, judgement normal, mood normal. [] EKG: EKG: [] Radiology/Procedures: Radiology/Procedures: [] Impression: [facility] [address] [place] [address] IMAGING REPORT Signed PATIENT: ALL GUTHRIE AACCOUNT: [id number] : 1960 LOCATION: ER AGE: 60 SEX: F EXAM STATUS: REG ER ORD. PHYSICIAN: LYNDA SETH APRN REASON: POP IN KNEE AFTER FALL, SWELLING PROCEDURE: KNEE LEFT 4V Study: XR KNEE _4 VIEWS WITH PATELLA_LT Indication: Fall. Swelling. Comparison: None recently. Findings: No definitive acute fracture is identified. Thin increased density/mineralization adjacent to the lateral femoral condyle in the expected region of the fibular collateral ligament origin is age indeterminant. Small/moderate knee joint effusion. Tricompartmental osteoarthrosis with osteophytic proliferation. Moderate medial compartment height loss. Impression: 1. No definitive acute fracture or traumatic malalignment. Apparent thin mineralization along the lateral femoral condyle near the expected attachment site of the fibular collateral ligament is age indeterminant and could be a chronic finding. 2. Small/moderate knee joint effusion. Advanced tricompartment osteoarthrosis with bulky osteophyte formation and moderate medial femorotibial compartment joint space narrowing. Electronically signed by: MARY VAZQUEZ MD (05/17/2021 3:56 PM) [facility] DICTATED and SIGNED BY: MARY VAZQUEZ MD DATE: 05/17/21 [id number] 0 Course & Med Decision Making: Course & Med Decision Making pertinent Labs and Imaging studies reviewed. (See chart for details) See HPI. Alert and oriented x4. Ambulatory with a steady gait with a walker. Uses full body weight when walking. Left knee is 2+ swollen with some tender ness to the lateral part of the dorsal knee. She does have full range of motion of the knee. She states when she does stand on it she will have a sharp shooting pain that goes down into the lateral left foot. She has full range of motion of her ankle without swelling or deformity. There is no deformity of the knee. There is no redness, heat or bruising. No swelling, bruising or deformity to the foot. Pedal pulse are present. Full range of motion of the knee. Sensations intact. No laxity in the joint. Denies hitting her head, neck pain, back pain, numbness or tingling, focal weakness, abdominal pain, chest pain, shortness of air, nausea or vomiting, LOC, dizziness, headache. Patient is placed in immobilizer. Patient is referred to orthopedics. [] Jaja Disclaimer: Jaja Disclaimer: This electronic medical record was generated, in whole or in part, using a voice recognition dictation system. Departure Departure Impression: Primary Impression: Knee pain, left Qualified Codes: M25.562 - Pain in left knee Disposition: HOME / SELF CARE / HOMELESS Condition: STABLE Referrals: NATHAN LAUREN MD (PCP) MONIKA RIVERS Jr. DO Patient Instructions: Knee Pain Additional Instructions: Follow-up with your primary care or orthopedic I have referred you to on this discharge sheet. Take medication as prescribed and with food. Do not drive or drink any alcohol while on pain medication as it can make you sleepy. Continue using ice, or your Biofreeze. Rest your extremity is much as possible. Scripts Tramadol Hcl (TRAMADOL HCL) 50 Mg Tablet 50 MG PO Q6HRS PRN for PAIN, #15 TAB Prov: LYNDA SETH APRN 05/17/21 LYNDA SETH APRN May 17, 2021 15:16
--- NOTE | 2021-05-17 15:58 | RAD ---
Study: XR KNEE _4 VIEWS WITH PATELLA_LT Indication: Fall. Swelling. Comparison: None recently. Findings: No definitive acute fracture is identified. Thin increased density/mineralization adjacent to the lat eral femoral condyle in the expected region of the fibular collateral ligament origin is age indeterm inant. Small/moderate knee joint effusion. Tricompartmental osteoarthrosis with osteophytic prolifera tion. Moderate medial compartment height loss. Impression: 1. No definitive acute fracture or traumatic malalignment. Apparent thin mineralization along the lat eral femoral condyle near the expected attachment site of the fibular collateral ligament is age inde terminant and could be a chronic finding. 2. Small/moderate knee joint effusion. Advanced tricompartment osteoarthrosis with bulky osteophyte f ormation and moderate medial femorotibial compartment joint space narrowing. Electronically signed by: MARY VAZQUEZ MD (05/17/2021 3:56 PM) [facility]
--- NOTE | 2021-05-17 16:01 | RAD ---
Study: XR FOOT_LEFT 3 VIEWS Indication: Pain. Fall. Comparison: Correlation is made to left ankle radiographs from 10/09/2020 Findings: No displaced fracture seen throughout the foot. No traumatic malalignment. Probable chronic fracture deformity of the fourth proximal phalanx. Hallux valgus and mild great toe MTP joint arthrosis. The b ones appear osteopenic. Impression: No displaced fracture or traumatic malalignment. Electronically signed by: MARY VAZQUEZ MD (05/17/2021 3:59 PM) [facility]
[2021-05-17] MEDS ORDERED: TRAM50TA PO (16:13)
[2021-05-17] MEDS ORDERED: traMADol 50 MG TABLET PO ONE (16:45)
== END 2021-05-17 17:05 | disposition home or self-care (01) ==
LOC: ER 12:32
DX: M25.562 Pain in left knee (principal); G89.11 Acute pain due to trauma; J44.9 Chronic obstructive pulmonary disease, unspecified; I10 Essential (primary) hypertension; G43.909 Migraine, unspecified, not intractable, without status migrainosus; Z87.891 Personal history of nicotine dependence; Z90.710 Acquired absence of both cervix and uterus; W18.39XA Other fall on same level, initial encounter; Y93.89 Activity, other specified; Y92.89 Other specified places as the place of occurrence of the external cause; Y99.8 Other external cause status
CPT/HCPCS: 29505; 73564; 73630; 99284

== ENCOUNTER → 2021-07-03 | Outpatient (CLI) | payer OTHER, MEDICAID ==
[~2021-07-03] MED LIST changes: +TRAM50TA PO
--- NOTE | 2021-07-03 15:00 | KCIC ---
MR LUMBAR SPINE WO [id number] Date: 07/03/2021 12:45 PM Indication: LUMBOSACRAL RADICULOPATHY AT L4. LBP, LLE pain since a fall last February. Comparison: None. Technique: Multi-planar multi-weighted magnetic resonance imaging of the lumbar spine was performed w ithout intravenous contrast using the standard lumbar spine protocol. FINDINGS: Straightening of the lumbar lordosis. Trace anterolisthesis at L3-4. No acute fracture. Mild multilev el degenerative disc desiccation and disc height loss. Bone marrow signal intensity is normal. The conus terminates at a normal level. No abnormal signal is seen within the visualized distal spina l cord. No clumping of intrathecal nerve roots. No soft tissue abnormality in the visualized abdomen or pelvis. T12-L1: No disc bulge. Mild facet arthropathy. No significant spinal stenosis or neural foraminal daniella rowing. L1-L2: No disc bulge. Severe right and moderate left facet arthropathy. No significant spinal stenosi s or neural foraminal narrowing. L2-L3: Disc bulge. Severe facet arthropathy. Ligamentum flavum thickening. Prominent dorsal epidural fat. Moderate spinal stenosis and left lateral recess narrowing. Mild bilateral neural foraminal narr owing. L3-L4: Disc bulge. Severe facet arthropathy. Ligamentum flavum thickening. Prominent dorsal epidural fat. Moderate spinal stenosis. Mild bilateral neural foraminal narrowing. L4-L5: Disc bulge. Severe facet arthropathy. Ligamental flavum thickening. Prominent dorsal epidural fat. Moderate spinal stenosis and lateral recess narrowing. Moderate right and mild left neural rudy inal narrowing. L5-S1: Disc bulge with left far lateral protrusion. Severe right and mild left facet arthropathy. No significant spinal stenosis. Moderate left lateral recess narrowing. Mild right and moderate left demetris ral foraminal narrowing. IMPRESSION: Moderate lumbar spondylosis and epidural lipomatosis, resulting in multilevel moderate spinal canal s tenosis. Electronically signed by: Morgan Kwan MD (07/03/2021 2:57 PM) [id number]
== END ==
LOC: KCIC MRI 12:29
PROVIDERS: ATTEND Physician Assistant
DX: M47.25 Other spondylosis with radiculopathy, thoracolumbar region (principal); M48.07 Spinal stenosis, lumbosacral region; M48.8X7 Other specified spondylopathies, lumbosacral region; M51.27 Other intervertebral disc displacement, lumbosacral region; E88.2 Lipomatosis, not elsewhere classified; M40.46 Postural lordosis, lumbar region
CPT/HCPCS: 72148

== ENCOUNTER → 2021-08-05 | Outpatient (CLI) | payer OTHER, MEDICAID ==
[~2021-08-05] MED LIST changes: +DEXAMETHASONE PRES.FREE 10 MG/ML VIAL. ONE; +IBUP-1027 PO; +IOHEXOL 180 MG/ML 10 ML VIAL. ONE; +MELA10CA PO; +NALT50TA PO; +TIMO5DRO26 EACHEYE; +TRAZ150T49 PO
--- NOTE | 2021-08-05 12:03 | PDOC1 ---
INITIAL PAIN CONSULT DATE OF SERVICE: DOS: DATE: 08/05/21 TIME: 11:57 CHIEF COMPLAINT: Chief Complaint: Low back and left lower extremity pain HISTORY OF PRESENT ILLNESS: 60-year-old female presents history of pain low back left lower extremity for about 6 months to year not result of any specific injury or accident that she is aware is been getting worse with time patient is seen orthopedic surgeon recently has had several shots in the left knee with cortisone without significant improvement patient also has had several x-rays showing some moderate arthritis in the left knee joint. Patient reports now pain across the low back radiating the posterior gluteus posterior thigh on the left into the knee mostly posteriorly can be numb and tingling with some foot drop which has been on her feet more than about 20 to 30 minutes dragging her left foot on the ground and stumbling patient reports has not fallen but she stumbled several times in the past 6 months secondary to the left foot being tired and unable to lift patient reports generally wakes her from sleep at night once or twice most nights with pain in the left leg especially the knee does affect her bowel kandace dder control but does affect her ability to walk otherwise not use any assistive devices to ambulate currently. Patient has had physical therapies in the past as well as stretching strength exercises when she had her right knee replaced is doing the stretching exercises with her back but has not had any significant reduction in pain with these. Patient did have an MRI scan of the lumbar spine showing L4-5 and L5-S1 disc bulge L5 1 shows left far lateral protrusion with severe right and mild left facet arthropathy with mild right and moderate left neuroforaminal narrowing L4-5 shows moderate spinal stenosis and lateral recess narrowing moderate right and mild left neuroforaminal narrowing as well. Patient rates disability rating 0-10 10 being the as a 7 with family home was possibilities recreation social activity self-care and life support activities specially sleeping. Patient is taking [id number] analgesics such as Tylenol and Advil without significant reduction in pain as well. PAST MEDICAL HISTORY: PMH: Hypertension, arthritis, depression, hepatitis quit smoking 1 year ago PREVIOUS SURGERIES: Past Surgical Hx: Right total knee replacement, left ankle fracture, bilateral cataract ex tractions, abdominal hernia repair, x2, total abdominal hysterectomy, tubal ligation, bilateral rotator cuff repairs. CURRENT MEDICATIONS: Current Meds: Active Scripts Medications Dose Route/Sig Max Daily Dose Days Date Category Ibuprofen 400 Mg Tablet 400 Mg PO PRN Q6HRS PRN 08/05/21 Reported Melatonin 10 Mg Capsule 1 Cap PO QHS 30 08/05/21 Reported Betimol (Timolol) 5 Ml Drops 1 Drop EACHEYE BID 30 08/05/21 Reported Naltrexone Hcl 50 Mg Tablet 50 Mg PO HS 08/05/21 Reported Trazodone Hcl 150 Mg Tablet 1 Tab PO QHS 30 08/05/21 Reported Inderal La (Propranolol Hcl) 60 Mg Cap.sa.24h 40 Mg PO BID 08/03/20 Reported Amlodipine Besylate 10 Mg Tablet 10 Mg PO DAILY 30 11/07/19 Rx Incruse Ellipta (Umeclidinium [place]) 62.5 Mcg Blst.w.dev 62.5 Mcg IH HS 07/18/19 Reported Lexapro (Escitalopram Oxalate) 20 Mg Tablet 20 Mg PO DAILY 07/18/19 Reported Advair 250-50 Diskus (Fluticasone/Salmeterol) 1 Each Disk.w.dev 1 Puff IH BID 07/21/17 Reported Albuterol Sulfate Conc Neb Soln (Albuterol Sulfate) 2.5 Mg/0.5 Ml Vial.neb 1 Vial NEB Q6HRS 08/23/14 Reported ALLERGIES; Allergies: Coded Allergies: No Known Drug Allergies (Unverified , 08/01/20) FAMILY HISTORY: Family Hx: No major medical problems or conditions that she is aware of. SOCIAL HISTORY: Social Hx: Patient quit smoking recently, does not drink alcohol does not use any illegal licit recreational drugs is single lives locally in [facility] and is currently retired. REVIEW OF SYSTEMS: ROS: Positive for those items mentioned in history of present illness, all systems are reviewed, otherwise negative ,and are complete full and well-documented on patient's chart. PHYSICAL EXAM: VS: Blood pressure is 111/60 pulse 56 respirations 20 temperature is 97.7 F height is 5 feet 5 inches weight is 197 pounds PE: PHYSICAL EXAMINATION: GENERAL: The patient is awake, alert, oriented, appropriate, very pleasant in demeanor HEENT: Shows normocephalic, atraumatic. Extraocular movements are intact and symmetrical. Oral cavity: Mucous membranes moist and pink. NECK: Shows anterior throat supple without palpable lymphadenopathy noted. Swallow reflex symmetrical. CHEST: Shows normal on inspection. Breath sounds are clear bilaterally, distant but no rales rhonchi wheezes auscultated. HEART: Shows S1, S2 clear. No murmurs auscultated. ABDOMEN: Soft, nontender, nondistended. No palpable organomegaly is noted. No rebound or guarding demonstrated. BACK: Shows spine grossly in the midline. Normal-appearing cervical lordotic curvature. There is wildly increased thoracic kyphosis, some minor flattening of the lumbar lordotic curvature. Lumbar paraspinous muscles show symmetrical on inspection, on palpation shows some moderate tenderness diffusely throughout the upper, middle and lower distribution of the paraspinous muscles bilaterally and also into the lower thoracic paraspinous musculature, firm and tender, but without specific trigger points, without radiation of pain. The patient has good rotational motion of the lumbar spine, both laterally as well as extension and flexion without significant difficulty. No tenderness over the spinous processes, sacrum or sacroiliac regions. EXTREMITIES: Lower extremities show deep tendon reflexes 1+ in the patellar and tendo calcaneus tendons. Motor exam is 5 on a scale of 5 with right dorsiflexion, extension, quadriceps and hamstring flexion and 4/5 on the left. Peripheral pulses are 1+ posterior tibial. No peripheral edema is noted bilaterally. Lower extremities are warm and dry to touch, equal in color and appearance. Straight leg raise noted to be positive on the left at approximate 40 degrees, decreased knee flexion, right side is negative. Gaenslen's and Shayne's maneuvers are negative bilaterally. The patient is able to stand, stand on her toes without significant difficulty or loss of balance, walks with a slight favoring gait does appear to favor the left lower extremity slightly but not use any assistive devices to ambulate such as canes or walkers. SKIN: Shows warm and dry, good turgor. No edema. No sores, rashes or bruising throughout. IMPRESSION: Impression: 60-year-old female with approximate 6-month 1 year history low back left lower extremity pain and radicular fashion MRI scan lumbar spine as noted Hypertension Shortness of breath Arthritis Plan: Options were discussed the patient occluding conservative managements physical therapies interventional techniques. Patient would like to pursue interventional techniques. We discussed a lumbar epidural steroid injection using description as well as anatomical models to describe the procedure. Risks were discussed including but not limited to: Bleeding, infection, possibility of epidural hematoma and subsequent neurological compromise, dural puncture, headaches, spinal cord and/or nerve damage, side effects of steroid medication, and poor results regarding pain control. Patient understands and wished to proceed. Patient will return to clinic in approximately 2 weeks for follow-up, was counseled as to return appointment, activity level, and side effect to be aware of. Procedure is lumbar epidural steroid injection under local anesthetic using sterile prep and drape at the L5-S1 level using C-arm fluoroscopic guidance in both AP and lateral views medications injected is 20 mg dexamethasone +10mL preservative-free normal saline and 2 mL contrast- condition at discharge is stable patient tolerated procedure well had no complications. MARCO A CORDON MD Aug 05, 2021 12:03
--- NOTE | 2021-08-05 12:04 | PDOC4 ---
Procedure Note: ICD 10 Code: ICD 10 Code: M54.17 M51.87 M4 8.07 Procedure Note: Patient was consented for lumbar epidural steroid injection with fluoroscopic guidance. Risks were discussed including but not limited to: Bleeding, infection, possibility of epidural hematoma and subsequent neurological compromise, dural puncture, headaches, spinal cord and/or nerve damage, side effects of steroid medication, and poor results regarding pain control. Patient understands and wished to proceed. Procedure is lumbar epidural steroid injection under local anesthetic using lulú rile prep and drape at the L5-S1 level using C-arm fluoroscopic guidance in both AP and lateral views medications injected is 20 mg dexamethasone +10mL preservative-free normal saline and 2 mL contrast- condition at discharge is stable patient tolerated procedure well had no complications. MARCO A CORDON MD Aug 05, 2021 12:04
== END | disposition home or self-care (01) ==
LOC: PNCL 10:18
PROVIDERS: ATTEND Anesthesiology
DX: M51.17 Intervertebral disc disorders with radiculopathy, lumbosacral region (principal); M48.07 Spinal stenosis, lumbosacral region; I10 Essential (primary) hypertension; J44.9 Chronic obstructive pulmonary disease, unspecified; K21.9 Gastro-esophageal reflux disease without esophagitis; M19.90 Unspecified osteoarthritis, unspecified site; G47.30 Sleep apnea, unspecified; F41.9 Anxiety disorder, unspecified; F32.9 Major depressive disorder, single episode, unspecified; F17.210 Nicotine dependence, cigarettes, uncomplicated; Z90.710 Acquired absence of both cervix and uterus; Z98.890 Other specified postprocedural states; Z82.49 Family history of ischemic heart disease and other diseases of the circulatory system
CPT/HCPCS: 62323; J1100; Q9965; 62322

== ENCOUNTER → 2021-08-19 | Outpatient (CLI) | payer OTHER, MEDICAID ==
[~2021-08-19] MED LIST changes: -DEXAMETHASONE PRES.FREE 10 MG/ML VIAL. ONE; +methylPREDNISolone ACETATE 40 MG/ML VIAL. ONE
--- NOTE | 2021-08-19 10:30 | PDOC ---
Progress Note - Pain Clinic Date of Service: DOS: DATE: 08/19/21 TIME: 10:26 Diagnosis: Dx: Lumbar radiculopathy with lumbar degenerative disc disease and lumbar spinal stenosis Myofascial pain History or Present Illness: HPI: 60-year-old female returns for follow-up status post lumbar epidural steroid injection x1. Patient reporting 90% improvement in her left leg still some pain in the back and now has new pain in the mid upper back and up into the shoulders and the base of the neck patient reports is, over the past week or 2 weeks however her leg is doing much better still pain the low back and now radiating superiorly with pain in the upper back mid back into the shoulders patient reports is worse with walking standing changing positions have difficulty sleeping because of the pain in the mid upper back patient reports her lower back and leg is doing much better but the upper back is significantly painful now patient reports her pain is a 10 on scale 10 is worst 6 on average 3 at its least and is a 6 today. Patient scribes aching and tight in the mid upper back cramping burning and searing with a stabbing pain in the mid and upper back between the shoulders. Patient reports the low back and leg is doing much better however no motor deficit still some fatigability in the left lower extremity and she continues to walk with her cane but no bowel or bladder incontinence. Physical Exam: VS: Blood pressure is 135/80 pulse 51 respirations 16 temperature is 98.0 F height is 5 feet 5 inches weight is 197 pounds. PE: PHYSICAL EXAMINATION: GENERAL: The patient is awake, alert, oriented, appropriate, very pleasant in demeanor HEENT: Shows normocephalic, atraumatic. Extraocular movements are intact and symmetrical. Oral cavity: Mucous membranes moist and pink. Dentition is intact. NECK: Shows anterior throat supple without palpable lymphadenopathy noted. Swallow reflex symmetrical. CHEST: Shows normal on inspection. Breath sounds are clear bilaterally, no rales or rhonchi auscultated. HEART: Shows S1, S2 clear. No murmurs auscultated. ABDOMEN: Soft, nontender, nondistended. No palpable organomegaly is noted. BACK: Shows spine grossly in the midline. Normal-appearing cervical lordotic curvature. There is mildly increased thoracic kyphosis, some flattening of the lumbar lordotic curvature. Lumbar paraspinous muscles show symmetrical on inspection, on palpation shows some moderate tenderness diffusely throughout the upper, middle and lower distribution of the paraspinous muscles, but without specific trigger points, without radiation of pain. Thoracic paraspinous muscles show symmetrical inspection with palpation some significant tenderness bilaterally especially in the rhomboid distribution between the shoulder blades also into the superior trapezius with very firm musculature diffusely tender throughout but without specific trigger points or radiation demonstrated consistent with myofascial pain bilaterally. The patient has good rotational motion of the lumbar spine, both laterally as well as extension and flexion without significant difficulty. EXTREMITIES: Lower extremities show deep tendon reflexes 1+ in the patellar and tendo calcaneus tendons. Motor exam is 5 on a scale of 5 with right dorsiflexion, extension, quadriceps and hamstring flexion and 4/5 on the left. Peripheral pulses are 1+ posterior tibial. No peripheral edema is noted pollo aterally. Lower extremities are warm and dry. SKIN: Shows warm and dry, good turgor. No edema. No sores, rashes or bruising throughout. Procedure: Procedure: Options discussed with patient. Patient's old chart was viewed as her current medication regimen updated current review of systems updated today as well. We will proceed with a lumbar epidural steroid injection today with fluoroscopic guidance. Risks were discussed including but not limited to: Bleeding, infection, possibility of epidural hematoma and subsequent neurological compromise, dural puncture, headaches, spinal cord and/or nerve damage, side effects of steroid medication, and poor results regarding pain control. Patient understands and wished to proceed. Recommended patient use heat and massage application to the mid and upper back and shoulders as well as stretching and strengthening exercises which were demonstrated for her today as well. Patient will return to clinic in approximate 2 weeks for follow-up, was counseled as to return home, activity level, and side effect to be aware of. Medication Injected: Med Injected: Procedure is lumbar epidural steroid injection under local anesthetic using sterile prep and drape at the L5-S1 level using C-arm fluoroscopic guidance in both AP and lateral views medications injected is 20 mg dexamethasone +10mL preservative-free normal saline and 2 mL contrast- condition at discharge is stable patient tolerated procedure well had no complications. Condition at Discharge: Condition at Discharge: Condition at discharge stable, patient Srinivasa the procedure well and had no complications. MARCO A CORDON MD Aug 19, 2021 10:30
--- NOTE | 2021-08-19 10:31 | PDOC4 ---
Procedure Note: ICD 10 Code: ICD 10 Code: M54.17 Five 1.37 M4 8.07 M60.89 Procedure Note: Patient was consented for lumbar epidural steroid injection with fluoroscopic guidance. Risks were discussed including but not limited to: Bleeding, infection, possibility of epidural hematoma and subsequent neurological compro mise, dural puncture, headaches, spinal cord and/or nerve damage, side effects of steroid medication, and poor results regarding pain control. Patient understands and wished to proceed. Procedure is lumbar epidural steroid injection under local anesthetic using sterile prep and drape at the L5-S1 level using C-arm fluoroscopic guidance in both AP and lateral views medications injected is 20 mg dexamethasone +10mL preservative-free normal saline and 2 mL contrast- condition at discharge is stable patient tolerated procedure well had no complications. MARCO A CORDON MD Aug 19, 2021 10:31
== END | disposition home or self-care (01) ==
LOC: PNCL 09:37
PROVIDERS: ATTEND Anesthesiology
DX: M51.16 Intervertebral disc disorders with radiculopathy, lumbar region (principal); M48.061 Spinal stenosis, lumbar region without neurogenic claudication; M79.18 Myalgia, other site; I10 Essential (primary) hypertension; J44.9 Chronic obstructive pulmonary disease, unspecified; K21.9 Gastro-esophageal reflux disease without esophagitis; M19.90 Unspecified osteoarthritis, unspecified site; G47.30 Sleep apnea, unspecified; F41.9 Anxiety disorder, unspecified; F32.9 Major depressive disorder, single episode, unspecified; F17.210 Nicotine dependence, cigarettes, uncomplicated; Z79.899 Other long term (current) drug therapy; Z98.890 Other specified postprocedural states; Z90.710 Acquired absence of both cervix and uterus
CPT/HCPCS: 62323; J1030; Q9965

== ENCOUNTER → 2021-09-02 | Outpatient (CLI) | payer OTHER, MEDICAID ==
[~2021-09-02] MED LIST changes: -IOHEXOL 180 MG/ML 10 ML VIAL. ONE; -methylPREDNISolone ACETATE 40 MG/ML VIAL. ONE
--- NOTE | 2021-09-02 09:50 | PDOC ---
Progress Note - Pain Clinic Date of Service: DOS: DATE: 09/02/21 TIME: 09:46 Diagnosis: Dx: Lumbar radiculopathy with lumbar degenerative disease and lumbar spinal stenosis Myofascial pain History or Present Illness: HPI: 60-year-old female returns for follow-up status post lumbar epidural steroid injection with 80% improvement for 4 weeks thus far,. Patient reports that she is still doing very well with the low back and left lower extremity but still some pain returning in the low back rating the posterior gluteus posterior thigh posterior calf again much better with her last visit and injection the pain returning slightly patient reports cramping and tight in the back constant shooting radiating in the left lower extremity patient reports he did increase her activity with distance walking doing household activities travel with greater ease and comfort taking less oxek-wzb-fxiungi analgesics as well since her last injection reports been sleeping better at night but is beginning to awaken her from sleep maybe once a night but not every night patient rates her pain as a 5 on a scale of 10 at all times with average worst and least and is a 5 today patient describes the pain is becoming more noticeable but only slightly in the left lower extremity and low back but again reminding her that it is still present. Patient reports no bowel or bladder incontinence no loss of motor function but some fatigability of the left leg is standing for more than about 30 minutes. Patient continues to do stretching and strength exercises on her own as well and is walking daily as tolerated but is becoming more difficult recently. Patient taking oral analgesics again decreased significantly after last injection but is beginning to use them again every other day or so such as Tylenol and Motrin. Physical Exam: VS: Blood pressure is 118/71 pulse 50 respirations 20 temperature 98.1 F height is 5 feet 5 inches weight is 195 pounds. PE: PHYSICAL EXAMINATION: GENERAL: The patient is awake, alert, oriented, appropriate, very pleasant in demeanor HEENT: Shows normocephalic, atraumatic. Extraocular movements are intact and symmetrical. Oral cavity: Mucous membranes moist and pink. Dentition is intact. NECK: Shows anterior throat supple without palpable lymphadenopathy noted. Swallow reflex symmetrical. CHEST: Shows normal on inspection. Breath sounds are clear bilaterally, distant but no rales or rhonchi auscultated. HEART: Shows S1, S2 clear. No murmurs auscultated. ABDOMEN: Soft, nontender, nondistended. No palpable organomegaly is noted. BACK: Shows spine grossly in the midline. Normal-appearing cervical lordotic curvature. There is slightly increased thoracic kyphosis, some minor flattening of the lumbar lordotic curvature. Lumbar paraspinous muscles show symmetrical on inspection, on palpation shows some moderate tenderness diffusely throughout the upper, middle and lower distribution of the paraspinous muscles, but without specific trigger points, without radiation of pain. The patient has good rotational motion of the lumbar spine, both laterally as well as extension and flexion without significant difficulty. EXTREMITIES: Lower extremities show deep tendon reflexes 1+ in the patellar and tendo calcaneus tendons. Motor exam is 5 on a scale of 5 with right dorsiflexion, extension, quadriceps and hamstring flexion and 4/5 on the left. Peripheral pulses are 1+ posterior tibial. No peripheral edema is noted bilaterally. Lower extremities are warm and dry to touch, equal in color and a ppearance. SKIN: Shows warm and dry, good turgor. No edema. No sores, rashes or bruising throughout. Procedure: Procedure: Options discussed with patient. Patient's old chart was reviewed as her current medication regimen updated current review of systems updated today as well. As patient is doing much better after her last injection but still has radicular pain following an L5-S1 dermatomal distribution in the left lower extremity, is beginning to return with activity and becoming more noticeable and fatiguing, we will preauthorize patient for a additional lumbar epidural steroid injection. Once approved, we will have patient return for translaminar approach L5-S1 lumbar epidural steroid injection with fluoroscopic guidance. In the meantime, patient will continue with stretching and strengthening exercises daily as well as daily walking as tolerated and oral analgesics as necessary. Medication Injected: Med Injected: None Condition at Discharge: Condition at Discharge: Condition at discharge is stable. MARCO A CORDON MD Sep 02, 2021 09:50
== END | disposition home or self-care (01) ==
LOC: PNCL 09:01
PROVIDERS: ATTEND Anesthesiology
DX: M51.16 Intervertebral disc disorders with radiculopathy, lumbar region (principal); M48.061 Spinal stenosis, lumbar region without neurogenic claudication; M79.18 Myalgia, other site; I10 Essential (primary) hypertension; J44.9 Chronic obstructive pulmonary disease, unspecified; G47.30 Sleep apnea, unspecified; K21.9 Gastro-esophageal reflux disease without esophagitis; M19.90 Unspecified osteoarthritis, unspecified site; F41.9 Anxiety disorder, unspecified; F32.9 Major depressive disorder, single episode, unspecified; F17.210 Nicotine dependence, cigarettes, uncomplicated; Z90.710 Acquired absence of both cervix and uterus; Z98.890 Other specified postprocedural states; Z79.899 Other long term (current) drug therapy
CPT/HCPCS: 99212; G0463